=== PATIENT | male | born 1965 | race Caucasian/White ===

== ENCOUNTER 2018-07-17 18:04 | Inpatient (IN) ==
--- NOTE | 2018-07-17 18:12 | Emergency Department Note ---
ED Disposition Clinical Impression: Precordial chest pain Disposition: Still a Patient Condition on Discharge: Good Referrals: Provider,Referral, [Primary Care Provider] - - Critical Care Critical Care Time: No Attestation: On , the high probability of a clinically significant, sudden or life threa tening deterioration of the following system(s) required my full and direct attention, intervention and personal management. The time I documented below is in addition to time spent performing reported procedures but includes the following listed in this critical care notation. Medical Decision Making - Fredis Inquiry Pt receiving controlled substance: No Vital Signs: 07/17/18 18:04 07/17/18 18:34 Temperature 97.7 F Temperature Source Oral Pulse Rate [Right Brachial] 85 77 Respiratory Rate 18 14 Blood Pressure [Right Arm] 165/107 H 145/79 H Blood Pressure Mean [Right Arm] 126 101 Blood Pressure Source [Right Arm] Automatic Cuff Automatic Cuff Blood Pressure Position [Right Arm] Sitting Sitting 02 Sat by Pulse Oximetry 97 95 Oxygen Delivery Method Room Air Room Air - Lab Data Lab Results 07/17/18 18:05: WBC 13.1 H, RBC 4.85, Hgb 14.7, Hct 44.1, MCV 90.9, MCH 30.4, MCHC 33.4, RDW 13.8, Plt Count 293, MPV 8.2, Neut % (Auto) 62.0, Lymph % (Auto) 30.9, [place] % (Auto) 5.2, Eos % (Auto) 1.5, Baso % (Auto) 0.3, Neut # (Auto) 8.1 H, Lymph # (Auto) 4.1, [place] # (Auto) 0.7, Eos # (Auto) 0.2, Baso # (Auto) 0.0 07/17/18 18:05: Sodium 139, Potassium 3.7, Chloride 102, Carbon Dioxide 28, Anion Gap 12.7, BUN 18, Creatinine 1.10, Estimated Creat Clear 75, Estimated GFR 69, Est GFR ( Amer) 84, Glucose 105, Calcium 8.9, Troponin I 0.03 Result diagrams: 07/17/18 18:05 07/17/18 18:05 Orders (Tests/Meds): ED MEDICATIONS Generic Name Dose Route Start Last Admin Trade Name Freq PRN Reason Stop Dose Admin Atorvastatin Calcium 40 mg 07/17/18 21:00 Lipitor 40mg Tablet PO 08/16/18 20:59 HS MARY Enoxaparin Sodium 70 mg 07/17/18 21:00 Lovenox 80mg/0.8ml Syringe SQ 08/16/18 20:59 BID MARY Metoprolol Tartrate 50 mg 07/17/18 21:00 Lopressor 50mg Tablet PO 08/16/18 20:59 BID MARY Discontinued Medications Generic Name Dose Route Start Last Admin Trade Name Caleq PRN Reason Stop Dose Admin Aspirin 324 mg 07/17/18 18:06 07/17/18 18:09 Aspirin 81mg Chewable Tablet PO 07/17/18 18:07 324 mg ONCE ONE Administration Clopidogrel Bisulfate 300 mg 07/17/18 19:08 Plavix 300mg Tablet PO 07/17/18 19:09 ONCE ONE ORDERS Category Date Time Status XR chest portable Stat Exams 07/17/18 18:06 Taken ECG Request by /Shannen Stat Y 07/17/18 18:06 Ordered - Radiology Data #1 Image(s): Chest Image Reviewed: Yes I reviewed the patient's radiology image COPD, bleb formation most prominent in right upper lobe - ECG Data Tracing #1 EKG interpreted by Robby Hernandez MD: Rhythm: sinus Rate: 85 [place]: normal Ectopy: none Conduction: normal ST Segment Changes: none T Wave Changes: none Q Waves: none No evidence of acute ischemia or injury - Physician Consults Physician Consulted: Tiffany Time: 18:39 Reason -: Cardiology Eval/Care Comment/Response: Recommends admission for cardiac cath in the morning. Start on beta-blockers, statin, Plavix, in addition to aspirin given. General Adult HPI - General Chief complaint: Chest Pain Stated complaint: chest pain Time Seen by Provider: 07/17/18 18:04 - History of Present Illness HPI narrative: Chief complaint of chest pain. For 2 weeks the patient has noticed when he is doing physical activity such as drywalling that he is more short of breath and sweatier than he has ever been in the past. Today he had 3 episodes of chest discomfort in the center of the substernal area that occurred while laying down and seem to improve with standing. Episodes lasted about 5 minutes and were associated with shortness of breath, nausea, diaphoresis, narrowing of faintness. Pain radiated down the inner aspect of both upper arms. He does not have any known heart disease. A smoker. He does not have hyperlipidemia, h ypertension, diabetes. No previous cardiac workup. Family history positive for stroke in his father and heart attack in grandparents. - Related Data Allergies Allergy/AdvReac Type Severity Reaction Status Date / Time NO KNOWN ALLERGIES Allergy Uncoded 09/04/17 14:23 [facility] History I have reviewed the patient's past medical history: Yes ROS Obtained: Yes All systems reviewed & no additional complaints - Constitutional Constitutional: Denies fever(s) - Cardiovascular Cardiovascular: Reports chest pain, Reports diaphoresis - Respiratory Respiratory: Yes dyspnea Physical Exam - General General appearance: alert, in no apparent distress - Head Head exam: atraumatic, normocephalic - Eye Eye exam: Present: normal appearance - ENT ENT exam: Present: mucous membranes moist - Neck Neck exam: Present: normal inspection, full ROM, trachea midline - Chest Chest inspection: Present: normal inspection, symmetric chest wall rise - Respiratory Respiratory exam: Present: normal lung sounds bilaterally. Absent: respiratory distress - Cardiovascular Cardiovascular exam: Present: regular rate, normal rhythm, normal heart sounds - Abdominal Exam Abdominal exam: Present: soft. Absent: distention, tenderness - Extremities Exam Extremities exam: Present: normal inspection, full ROM, other (Symmetric normal pulses of the extremities) - Neurological Exam Neurological exam: Present: alert, oriented X3, CN II-XII intact. Absent: motor sensory deficit - Psychiatric Psychiatric exam: Present: anxious - Skin Skin exam: Present: warm, dry
[2018-07-17 18:20] LABS: Basophils % 0.3 % (0.1-2.0); Eosinophils # 0.2 K/mm3 (0.0-0.4); Eosinophils % 1.5 % (0.1-12.0); Hematocrit 44.1 % (42.0-52.0); Hemoglobin 14.7 g/dL (14.1-18.0); Lymphocytes # 4.1 K/mm3 (0.7-4.5); Lymphocytes % 30.9 K/mm3 (10-50); Mean Corpuscular HGB Conc 33.4 g/dL (31.8-35.4); Mean Corpuscular Hemoglobin 30.4 pg (27.0-31.2); Mean Corpuscular Volume 90.9 fl (80-94); Mean Platelet Volume 8.2 fl (7.4-10.4); Monocytes # 0.7 K/mm3 (0.1-1.0); Monocytes % 5.2 % (1.7-9.3); Neutrophils # 8.1 K/mm3 (1.8-7.8); Platelet Count 293 K/mm3 (142-424); Red Blood Count 4.85 M/mm3 (4.60-6.20); Red Cell Distribution Width 13.8 % (11.5-17.5); White Blood Count 13.1 K/mm3 (4.8-10.8)
[2018-07-17 18:33] LABS: Anion Gap 12.7 mEq/L (5-15); Calcium 8.9 mg/dL (8.5-10.1); Potassium 3.7 mmoL/L (3.5-5.1)
--- NOTE | 2018-07-17 20:37 | History & Physical Report ---
*Admission Date: 07/17/18 *Chief complaint: chest pain *History of present illness: this wm with several episodes of ant chest pain and was seen in the ed - [facility] complaint of chest pain. For 2 weeks the patient has noticed when he is doing physical activity such as drywalling that he is more short of breath and sweatier than he has ever been in the past. Today he had 3 episodes of chest discomfort in the center of the substernal area that occurred while laying down and seem to improve with standing. Episodes lasted about 5 minutes and were associated with shortness of breath, nausea, diaphoresis, narrowing of faintness. Pain radiated down the inner aspect of both upper arms. He does not have any known heart disease. A smoker. He does not have hyperlipidemia, hypertension, diabetes. No previous cardiac workup. Family history positive for stroke in his father and heart attack in grandparents. [facility] History I have reviewed the patient's past medical history: Yes - *Social History Smoking Status: Current every day smoker Alcohol Intake: never - Psychiatric History Expresses thoughts of harming self/others: None Suicide Plan Description: No Plan Review of Systems - Review of Systems Review of systems:: pertinent systems reviewed and negative unless documented below - Constitutional Denies fever(s) - Eyes Denies change in vision - ENT Denies change in voice - *Cardiovascular Reports chest pain - *Respiratory Denies cough - *Gastrointestinal Reports nausea, Denies abdominal pain - *Genitourinary Denies blood in urine - *Musculoskeletal Denies joint pain - Integumentary/Breasts Denies rash - *Neurologic Denies seizure-like activity - Psychiatric Denies anxiety Meds Home Medications Medication Instructions Recorded Confirmed Type Methadone HCl [Methadose] 70 mg PO DAILY 07/17/18 07/17/18 History Allergies Allergy/AdvReac Type Severity Reaction Status Date / Time NO KNOWN ALLERGIES Allergy Uncoded 09/04/17 14:23 Exam Vital signs and Labs for Last 24 Hours: Temp Pulse Resp BP Pulse Ox 97.7 F 74 20 165/98 H 99 07/17/18 18:04 07/17/18 20:29 07/17/18 20:29 07/17/18 20:29 07/17/18 20:29 Laboratory Results - last 24 hr 07/17/18 18:05: WBC 13.1 H, RBC 4.85, Hgb 14.7, Hct 44.1, MCV 90.9, MCH 30.4, MCHC 33.4, RDW 13.8, Plt Count 293, MPV 8.2, Neut % (Auto) 62.0, Lymph % (Auto) 30.9, [place] % (Auto) 5.2, Eos % (Auto) 1.5, Baso % (Auto) 0.3, Neut # (Auto) 8.1 H, Lymph # (Auto) 4.1, [place] # (Auto) 0.7, Eos # (Auto) 0.2, Baso # (Auto) 0.0 07/17/18 18:05: Sodium 139, Potassium 3.7, Chloride 102, Carbon Dioxide 28, Anion Gap 12.7, BUN 18, Creatinine 1.10, Estimated Creat Clear 75, Estimated GFR 69, Est GFR ( Amer) 84, Glucose 105, Calcium 8.9, Troponin I 0.03 I & O for Last 24 hours: Intake & Output 07/15/18 07/16/18 07/17/18 07/18/18 11:59 11:59 11:59 11:59 Weight 155 lb - Constitutional no acute distress - *Routine HEENT Exam Head: Present: normocephalic Eye: Present: EOMI, PERRL ENT: Present: mucous membranes dry - *Routine Neck Exam Present: supple - *Routine Respiratory Exam Present: CTA bilaterally - *Routine Cardiovascular Exam Present: RRR, murmur. Absent: rubs - *Routine Abdominal Exam Present: soft - *Routine Extremities Exam Present: full ROM - *Routine Skin Exam Present: intact - *Routine Neurological Exam Present: alert, oriented X3, CN II-XII intact - Routine Psychiatric Exam Present: normal affect Assessment and Plan (1) Precordial chest pain Current visit: Yes Status: Acute Category: Medical Code(s): R07.2 - Precordial pain (2) Tobacco use Current visit: Yes Status: Acute Category: Medical Code(s): Z72.0 - Tobacco use
--- NOTE | 2018-07-18 07:25 | Consult Report ---
History of Present Illness Consult date: 07/18/18 Requesting physician: Viraj Barr Consult reason: chest pain Chief complaint: chest pain Additional Medical History:: 1. Tobacco use 2. History of steam clemens to the left hand 3. Methadone use History of present illness: 53 yo WM with several episodes of ant chest pain and was seen in the ed - chief complaint of chest pain. For 2 weeks the patient has noticed when he is doing physical activity, such as dry walling, that he is more short of breath and sweatier than he has ever been in the past. Today he had 3 episodes of chest discomfort in the center of the substernal area that occurred while laying down and seem to improve with standing. Episodes lasted about 5 minutes and were associated with shortness of breath, nausea, diaphoresis, narrowing of faintness. Pain radiated down the inner aspect of both upper arms. He does not have any known heart disease. A smoker. He does not have hyperlipidemia, hypertension, diabetes. No previous cardiac workup. Family history positive for stroke in his father and heart attack in grandparents The above per Dr. Barr and Dr. Inman EKGs in the ER showed sinus rhythm with less than [address] segment elevation in the inferior and lateral leads. Patient's initial troponin was normal but he was kept overnight for observation with subsequent troponins noted to be elevated. Patient was started on Integrilin, nitroglycerin drip along with aspirin, Plavix and a dose of Lovenox. His symptoms resolved quickly in the ER with no recurrence overnight. Telemetry shows no arrhythmias overnight. [facility] History Medical History: Denies:: Cancer, Diabetes Mellitus Type 1, Diabetes Mellitus Type 2, MRSA Other Medical History: Reports: Arthritis (hands - osteo), Sinus Problems (seasonal allergies) Laterality Cases: Bilateral: Arthroscopy Shoulder Other Surgeries: Yes: Other (T&A) Amputation: No Fractures: Yes (right & left pinky) - *Social History Educational Level: Attended College Smoking Status: Current every day smoker Tobacco Type: cigarettes # Packs/Day (cigarettes): 1 #Yrs smoked (if former smoker): 45 Alcohol Intake: never Substance Use Type: opiates, other Occupational Status: employed Housing: house Household Members: significant other - Psychiatric History Expresses thoughts of harming self/others: None Suicide Plan Description: No Plan *Family Hx:: Stroke Meds Home Medications Medication Instructions Recorded Confirmed Type Methadone HCl [Methadose] 70 mg PO DAILY 07/17/18 07/17/18 History Allergies Allergy/AdvReac Type Severity Reaction Status Date / Time NO KNOWN ALLERGIES Allergy Uncoded 09/04/17 14:23 Review of Systems - *Cardiovascular Reports chest pain, Reports shortness of breath, Reports shortness of breath with activity - *Respiratory Reports shortness of breath with activity - *Gastrointestinal Reports heartburn, Denies bright, red blood in stools, Denies loose stools, Denies black, tarry stools - *Genitourinary Denies blood in urine - *Musculoskeletal Denies joint pain - *Neurologic Denies seizure-like activity Exam Vital signs and Labs for Last 24 Hours: Temp Pulse Resp BP Pulse Ox 98.3 F 72 19 122/76 98 07/18/18 04:00 07/18/18 06:18 07/18/18 06:18 07/18/18 06:18 07/18/18 06:18 Laboratory Results - last 24 hr 07/17/18 18:05: WBC 13.1 H, RBC 4.85, Hgb 14.7, Hct 44.1, MCV 90.9, MCH 30.4, MCHC 33.4, RDW 13.8, Plt Count 293, MPV 8.2, Neut % (Auto) 62.0, Lymph % (Auto) 30.9, [place] % (Auto) 5.2, Eos % (Auto) 1.5, Baso % (Auto) 0.3, Neut # (Auto) 8.1 H, Lymph # (Auto) 4.1, [place] # (Auto) 0.7, Eos # (Auto) 0.2, Baso # (Auto) 0.0 07/17/18 18:05: Sodium 139, Potassium 3.7, Chloride 102, Carbon Dioxide 28, Anion Gap 12.7, BUN 18, Creatinine 1.10, Estimated Creat Clear 75, Estimated GFR 69, Est GFR ( Amer) 84, Glucose 105, Calcium 8.9, Troponin I 0.03 07/17/18 22:15: Troponin I 0.43 H 07/18/18 01:09: Troponin I 0.84 H I & O for Last 24 hours: Intake & Output 07/15/18 07/16/18 07/17/18 07/18/18 11:59 11:59 11:59 11:59 Intake Total 138 / 138 Output Total 950 / 950 Balance -812 / -812 Weight 163 lb 9 oz - *Routine Neck Exam Present: supple. Absent: JVD, carotid bruit - *Routine Respiratory Exam Present: CTA bilaterally. Absent: accessory muscle use, rales, rhonchi, wheezes - *Routine Cardiovascular Exam Present: RRR. Absent: murmur, gallop, rubs - *Routine Abdominal Exam Present: soft. Absent: tenderness, distended, guarding - *Routine Extremities Exam Absent: edema, calf tenderness - *Routine Neurological Exam Present: alert, oriented X3, moving all extremities Assessment and Plan (1) Myocardial infarction Current visit: Yes Status: Acute Category: Medical Code(s): I21.9 - Acute myocardial infarction, unspecified (2) Tobacco use Current visit: Yes Status: Acute Category: Medical Code(s): Z72.0 - Tobacco use - Assessment and plan all Dx Assessment and Plan for all problems:: 1. Proceed with left heart catheterization today. 2. Continue current medications including IV Integrilin and nitroglycerin drip. 3. After informed consent signed, patient will be given a dose of Ativan for his anxiety. 4. Will obtain an echocardiogram to evaluate left ventricular size and function and valve status. 5. Further recommend he should follow pending above. 6. Patient will need to be allowed to go to his methadone clinic appointment tomorrow morning.
--- NOTE | 2018-07-18 07:27 | Pharmacy Consult Notes ---
[facility] Pharmacy VTE Monitoring - Patient Demographics Admission date: 07/17/18 Report Date: 07/18/18 Time: 07:27 Allergies/Adverse Reactions: Patient Allergies NO KNOWN ALLERGIES Allergy (Uncoded 09/04/17 14:23) Height: 1.73 m Weight: 74.191 kg Patient Problems: Current Active Problems Precordial chest pain (Acute) Tobacco use (Acute) - VTE Risk Labs: VTE Related Lab Results Hgb 14.7 g/dL (14.1-18.0) 07/17/18 18:05 Hct 44.1 % (42.0-52.0) 07/17/18 18:05 Plt Count 293 K/mm3 (142-424) 07/17/18 18:05 BUN 18 mg/dL (7-18) 07/17/18 18:05 Creatinine 1.10 mg/dL (0.70-1.30) 07/17/18 18:05 Estimated Creat Clear 75 mL/min (0-300) 07/17/18 18:05 Was VTE Risk Assessment Performed: Yes VTE Score: 3 VTE Risk Level: Low Risk - Prophylaxis VTE Prophylaxis Ordered?: Yes Types of VTE Prophylaxis: TEDS Knee High, Pharmacological Location of Applied Device: Bilateral Lower Extremeties Pharmacologic Type: Enoxaparin - VTE Diagnosis Confirmed Treatment or plan recommended: Continue Current Treatment
--- NOTE | 2018-07-18 12:42 | Progress Note ---
Internal Medicine - PN: Subj *Date: 07/18/18 *Time: 08:20 Exam Vital signs and Labs for Last 24 Hours: Temp Pulse Resp BP Pulse Ox 98.3 F 50 L 17 129/66 96 07/18/18 11:45 07/18/18 12:15 07/18/18 12:15 07/18/18 12:15 07/18/18 12:15 Laboratory Results - last 24 hr 07/17/18 18:05: WBC 13.1 H, RBC 4.85, Hgb 14.7, Hct 44.1, MCV 90.9, MCH 30.4, MCHC 33.4, RDW 13.8, Plt Count 293, MPV 8.2, Neut % (Auto) 62.0, Lymph % (Auto) 30.9, [place] % (Auto) 5.2, Eos % (Auto) 1.5, Baso % (Auto) 0.3, Neut # (Auto) 8.1 H, Lymph # (Auto) 4.1, [place] # (Auto) 0.7, Eos # (Auto) 0.2, Baso # (Auto) 0.0 07/17/18 18:05: Sodium 139, Potassium 3.7, Chloride 102, Carbon Dioxide 28, Anion Gap 12.7, BUN 18, Creatinine 1.10, Estimated Creat Clear 75, Estimated GFR 69, Est GFR ( Amer) 84, Glucose 105, Calcium 8.9, Troponin I 0.03 07/17/18 22:15: Troponin I 0.43 H 07/18/18 01:09: Troponin I 0.84 H 07/18/18 09:09: Activated Clotting Time 326 H* 07/18/18 09:19: Activated Clotting Time 278 H* I & O for Last 24 hours: Intake & Output 07/16/18 07/17/18 07/18/18 07/19/18 11:59 11:59 11:59 11:59 Intake Total 138 / 138 Output Total 950 / 950 Balance -812 / -812 Weight 163 lb 9 oz - *Routine HEENT Exam Head: Present: normocephalic Eye: Present: PERRL ENT: Present: mucous membranes moist - *Routine Neck Exam Present: supple. Absent: lymphadenopathy - *Routine Respiratory Exam Present: CTA bilaterally - *Routine Cardiovascular Exam Present: RRR - *Routine Abdominal Exam Present: soft, normoactive bowel sounds. Absent: tenderness - *Routine Extremities Exam Absent: cyanosis, clubbing, edema - *Routine Skin Exam Present: warm. Absent: rash - *Routine Neurological Exam Present: alert, oriented X3 Assessment and Plan (1) Myocardial infarction Current visit: Yes Status: Acute Category: Medical Code(s): I21.9 - Acute myocardial infarction, unspecified (2) Tobacco use Current visit: Yes Status: Acute Category: Medical Code(s): Z72.0 - Tobacco use - Assessment and plan all Dx Assessment and Plan for all problems:: Rounded with Dr. Barr all orders per [place] heart cath
--- NOTE | 2018-07-18 16:19 | Cardiology Report ---
PROCEDURE: 2-D M-mode and color Doppler study INDICATIONS FOR THE TEST: Chest pain X COPD Heart Murmur Tobacco SmokingX Palpitations Fatigue Syncope Edema Hypertension Diabetes Mellitus Rheumatic Fever SOBXDOEXObesity Hyperlipidemia Family History HD Additional History POS TROP PATIENT INFORMATION HEIGHT: 68 WEIGHT:163 GENDER: Male B/P:122/76 2-D/M-MODE INTERPRETATION: 2-D MEASUREMENTS OBSERVED VALUES IN CMS Right Ventricular Dimension (RVDd) 2.6 Interventricular Septum (Thickness)(IVsd) 1.0 Left Ventricular Internal Dimensions(LVIDd) 4.2 Left Ventricular Posterior Wall (Thickness)(LVPWd) 1.0 Aortic Root 3.3 Aortic Cusp Separation 2.5 Left Atrial Dimensions (LAD) 2.7 2D 1. Left atrium is mildly enlarged, left ventricle is normal size, visually estimated ejection fraction 40%, there is marked hypokinesis involving mid to distal septum, anterior, and anteroapical wall. 2. The right atrium and right ventricle are normal size and contractility. 3. The aortic valve is minimally thickened and fibrosed. 4. The mitral and tricuspid valve leaflets are minimally thickened and 5. The pulmonic valve is poorly visualized. 6. No significant pericardial effusion noted. DOPPLER INTERROGATION: Doppler interrogation of the aortic, mitral and tricuspid valvular presence of mild mitral and tricuspid regurgitation, tricuspid regurgitation jet velocity is inadequate for calculation of the right ventricular systolic pressure, grade 1 diastolic dysfunction seen without tissue Doppler evidence of raised left atrial pressure. CONCLUSION: 1. Mildly enlarged left atrium, normal left ventricular size, visually estimated ejection fraction 40%, with segmental wall motion abnormality described above, grade 1 diastolic dysfunction seen without tissue Doppler evidence of raised left atrial pressure. 2. Mild mitral and tricuspid regurgitation 3. No significant pericardial effusion noted.
[2018-07-19 06:22] LABS: Chol/HDL Ratio 5.4 (1-3.5)
--- NOTE | 2018-07-19 07:42 | Progress Note ---
Subjective Date: 07/19/18 Time: 07:39 Principal diagnosis: NSTEMI Interval history: 53 yo WM in bed in NAD. No complaints overnight. Ready to go home. He has nicotine patches at home and will use them. Does not want to try Chantix and did not have a good experience with wellbutrin. Telemetry shows sinus rhythm with late T wave inversion related to OR. Septal, anterior and Apical hypokinesis noted on echo with reduced EF at 40%. Exam Vital signs and Labs for Last 24 Hours: Temp Pulse Resp BP Pulse Ox 98.0 F 52 L 18 116/71 96 07/19/18 06:00 07/19/18 06:00 07/19/18 06:00 07/19/18 06:00 07/19/18 06:00 Laboratory Results - last 24 hr 07/18/18 09:09: Activated Clotting Time 326 H* 07/18/18 09:19: Activated Clotting Time 278 H* 07/19/18 05:50: Triglycerides 108, Cholesterol 185, LDL Cholesterol 129, VLDL Cholesterol 22, HDL Cholesterol 34, Cholesterol/HDL Ratio 5.4 H I & O for Last 24 hours: Intake & Output 07/16/18 07/17/18 07/18/18 07/19/18 11:59 11:59 11:59 11:59 Intake Total 138 / 138 480 / 480 Output Total 950 / 950 850 / 850 Balance -812 / -812 -370 / -370 Weight 163 lb 9 oz 165 lb 8 oz - *Routine Neck Exam Present: supple. Absent: JVD, carotid bruit - *Routine Respiratory Exam Present: decreased breath sounds, CTA bilaterally. Absent: accessory muscle use, rales, rhonchi, wheezes - *Routine Cardiovascular Exam Present: RRR. Absent: murmur, gallop, rubs - *Routine Extremities Exam Absent: edema, calf tenderness - *Routine Neurological Exam Present: alert, oriented X3, moving all extremities Progress Note: A&P (1) Myocardial infarction Status: Acute Current Visit: Yes (2) Tobacco use Status: Acute Current Visit: Yes Assessment and Plan for All Diagnoses:: OK for discharge home. Activity: Nothing strenuous. Follow up in one week. Meds: ASA 81 mg daily Plavix 75 mg daily Atorvastatin 40 mg daily Metoprolol 25 mg BID Lisinopril 5 mg daily
--- NOTE | 2018-07-19 08:32 | Discharge Summary ---
General - General Admission date:: 07/17/18 Discharge date: 07/19/18 HPI HPI: this wm with several episodes of ant chest pain and was seen in the ed - hief complaint of chest pain. For 2 weeks the patient has noticed when he is doing physical activity such as drywalling that he is more short of breath and sweatier than he has ever been in the past. Today he had 3 episodes of chest discomfort in the center of the substernal area that occurred while laying down and seem to improve with standing. Episodes lasted about 5 minutes and were associated with shortness of breath, nausea, diaphoresis, narrowing of faintness. Pain radiated down the inner aspect of both upper arms. He does not have any known heart disease. A smoker. He does not have hyperlipidemia, hypertension, diabetes. No previous cardiac workup. Family history positive for stroke in his father and heart attack in grandparents. Hospital Course Hospital Course: pt with improvement in chest pain after admit with meds and was seen by card -3 yo WM with several episodes of ant chest pain and was seen in the ed - chief complaint of chest pain. For 2 weeks the patient has noticed when he is doing physical activity, such as dry walling, that he is more short of breath and sweatier than he has ever been in the past. Today he had 3 episodes of chest discomfort in the center of the substernal area that occurred while laying down and seem to improve with standing. Episodes lasted about 5 minutes and were associated with shortness of breath, nausea, diaphoresis, narrowing of faintness. Pain radiated down the inner aspect of both upper arms. He does not have any known heart disease. A smoker. He does not have hyperlipidemia, hypertension, diabetes. No previous cardiac workup. Family history positive for stroke in his father and heart attack in grandparents The above per Dr. Barr and Dr. Inman EKGs in the ER showed sinus rhythm with less than [address] segment elevation in the inferior and lateral leads. Patient's initial troponin was normal but he was kept overnight for observation with subsequent troponins noted to be elevated. Patient was started on Integrilin, nitroglycerin drip along with aspirin, Plavix and a dose of Lovenox. His symptoms resolved quickly in the ER with no recurrence overnight. Telemetry shows no arrhythmias overnight. Proceed with left heart catheterization today. 2. Continue current medications including IV Integrilin and nitroglycerin drip. 3. After informed consent signed, patient will be given a dose of Ativan for his anxiety. 4. Will obtain an echocardiogram to evaluate left ventricular size and function and valve status. 5. Further recommend he should follow pending above. 6. Patient will need to be allowed to go to his methadone clinic appointment tomorrow morning. pt had card cath - GIOGRAPHIC RESULTS: 1. The left main artery 2. The left anterior descending artery has proximal 10% stenoses with a ruptured plaque and a thrombus in the midportion of the LAD. The stenotic area at the ruptured plaque was approximately 50% stenosis. 3. The ramus intermedius has a proximal eccentric 80% stenosis 4. The circumflex artery is a codominant vessel large and normal 5. The right coronary artery is a codominant vessel and has mid vessel 30% stenosis 6. The BRIDGES ventriculogram reveals normal ejection fraction estimated at 65% 7. The left ventricular end-diastolic pressure is 10 mmHg IMPRESSION: 1. Severe 2 vessel coronary artery disease as described above 2. Active thrombus in the mid LAD which represents the infarct vessel 3. Successful stenting the mid LAD stenosis reduced to 0% with 2 drug-eluting stents 4. Severe stenosis in the proximal ramus intermedius with successful stenting reducing the stenosis to 0% 5. Normal ejection fraction 6. Normal left ventricular end-diastolic pressure PLAN: 1. Plavix 75 mg a day and aspirin 81 mg a day for at least one year 2. LDL less than 55 3. Low dose carvedilol and lisinopril if blood pressure and heart rate will support 4. Avoidance of tobacco products 5. Risk factor modification 6. Cardiac rehabilitation doing better today and will be d/c for follow up with kitty Wolfe for discharge home. Activity: Nothing strenuous. Follow up in one week. Meds: ASA 81 mg daily Plavix 75 mg daily Atorvastatin 40 mg daily Metoprolol 25 mg BID Lisinopril 5 mg daily Objective Vital signs: Temp Pulse Resp BP Pulse Ox 98.5 F 52 L 18 116/71 96 07/19/18 08:00 07/19/18 06:00 07/19/18 06:00 07/19/18 06:00 07/19/18 06:00 no acute distress, average body habitus - *Routine HEENT Exam Head: Present: normocephalic Eye: Present: EOMI, PERRL ENT: Present: mucous membranes dry - *Routine Neck Exam Present: supple. Absent: JVD - *Routine Respiratory Exam Present: CTA bilaterally - *Routine Cardiovascular Exam Present: RRR, murmur - *Routine Abdominal Exam Present: soft - *Routine Extremities Exam Absent: calf tenderness - *Routine Skin Exam Present: intact - *Routine Neurological Exam Present: alert, oriented X3, CN II-XII intact - Routine Psychiatric Exam Present: normal affect Results Labs on day of discharge: Labs from last 24 hours 07/19/18 07/18/18 07/18/18 05:50 09:19 09:09 Activated Clotting Time 278 H* 326 H* Triglycerides 108 Cholesterol 185 LDL Cholesterol 129 VLDL Cholesterol 22 HDL Cholesterol 34 Cholesterol/HDL Ratio 5.4 H DS: Diagnosis - Discharge Diagnosis (1) Myocardial infarction Status: Acute (2) Tobacco use Status: Acute Discharge Plan - Patient Discharge Instructions ACTIVITY: Continue current activity DIET: continue same diet Patient Instructions: DI for Heart Attack, Heart-Healthy Diet, DI for Cardiac Catheterization, DI for Surgical Site Infection - Follow up Plan Disposition: Home, Self-[facility] Medications: Home Medications Medication Instructions Recorded Confirmed Type Methadone HCl [Methadose] 70 mg PO DAILY 07/17/18 07/17/18 History Prescriptions/Medication Reconciliation: New Atorvastatin Calcium [Lipitor 40mg Tablet] 40 mg PO HS #30 tablet Clopidogrel Bisulfate [Plavix 75mg Tab] 75 mg PO DAILY #30 tablet Metoprolol Tartrate [Lopressor 25mg tablet] 25 mg PO BID #60 tablet Methadone HCl [Methadone 10mg Tablet] 70 mg PO DAILYP PRN tablet PRN Reason: pain Aspirin [Aspirin 81mg EC Tab] 81 mg PO DAILY #30 tablet. Lisinopril [Zestril 5mg Tablet] 5 mg PO DAILY #30 tablet Continue Methadone HCl [Methadose] 70 mg PO DAILY
== END 2018-07-19 09:24 | disposition home or self-care (01) ==
LOC: 2ND 18:04 → ER 18:04 → 2ND 20:29
PROVIDERS: ADMIT Emergency Medicine; ATTEND Emergency Medicine

== ENCOUNTER 2018-08-01 13:22 | Outpatient (RCR) | payer BC, SELFPAY | END 2018-08-30 15:07 | disposition home or self-care (01) | LOC: PT 13:22 | PROVIDERS: Visit Provider Internal Medicine | DX: Z95.5 Presence of coronary angioplasty implant and graft (principal) ==

== ENCOUNTER → 2018-08-07 12:14 | Outpatient (CLI) | payer BC, SELFPAY | PROVIDERS: PCP Emergency Medicine; Visit Provider Internal Medicine | DX: I25.10 Atherosclerotic heart disease of native coronary artery without angina pectoris (principal); E78.2 Mixed hyperlipidemia; Z72.0 Tobacco use | CPT/HCPCS: 93005; 93017 ==

== ENCOUNTER 2018-08-10 06:18 | Observation (INO) ==
[2018-08-10 06:39] LABS: Basophils % 0.5 % (0.1-2.0); Eosinophils # 0.1 K/mm3 (0.0-0.4); Eosinophils % 1.6 % (0.1-12.0); Hemoglobin 14.8 g/dL (14.1-18.0); Lymphocytes # 2.1 K/mm3 (0.7-4.5); Lymphocytes % 24.7 % (10-50); Mean Corpuscular HGB Conc 31.4 g/dL (31.8-35.4); Mean Corpuscular Hemoglobin 28.9 pg (27.0-31.2); Mean Platelet Volume 8.4 fl (7.4-10.4); Monocytes # 0.5 K/mm3 (0.1-1.0); Monocytes % 6.3 % (1.7-9.3); Neutrophils # 5.7 K/mm3 (1.8-7.8); Neutrophils % 66.9 % (37.0-80.0); Platelet Count 307 K/mm3 (142-424); Red Blood Count 5.11 M/mm3 (4.60-6.20); Red Cell Distribution Width 13.8 % (11.5-17.5); White Blood Count 8.6 K/mm3 (4.8-10.8)
[2018-08-10 06:52] LABS: Anion Gap 11.6 mEq/L (5-15); Blood Urea Nitrogen 9 mg/dL (7-18); Calcium 8.8 mg/dL (8.5-10.1); Carbon Dioxide 28 mmol/L (21.0-32.0); Chloride 101 mmol/L (98-107); Glucose 131 mg/dL (74-106); Potassium 3.6 mmoL/L (3.5-5.1); Sodium 137 mmol/L (136-145)
--- NOTE | 2018-08-10 07:38 | Emergency Department Note ---
ED Disposition Clinical Impression: Angina at rest, History of coronary artery stent placement CAD (coronary artery disease) Qualifiers: Coronary Disease-Associated Artery/Lesion type: unspecified vessel or lesion type [place] vs. transplanted heart: [place] heart Associated angina: angina presence unspecified Qualified Code(s): I25.10 - Atherosclerotic heart disease of [place] coronary artery without angina pectoris Disposition: Home, Self-Care Condition on Discharge: Good Instructions: DI for Angina Additional Instructions: see sunday and continue meds Referrals: Viraj Barr MD [Primary Care Provider] - - Critical Care Critical Care Time: No Attestation: On 08/10/18, the high probability of a clinically significant, sudden or life threatening deterioration of the following system(s) required my full and direct attention, intervention and personal management. The time I documented below is in addition to time spent performing reported procedures but includes the following listed in this critical care notation. Medical Decision Making - Medical Records Medical records reviewed: Yes: I reviewed the patient's medical records. - Fredis Inquiry Pt receiving controlled substance: No Vital Signs: 08/10/18 06:19 08/10/18 06:49 Temperature 98 F Temperature Source Oral Pulse Rate [Right Radial] 81 82 Respiratory Rate 17 18 Blood Pressure [Right Arm] 149/95 H 113/68 Blood Pressure Mean [Right Arm] 113 83 Blood Pressure Source [Right Arm] Automatic Cuff Blood Pressure Position [Right Arm] Supine 02 Sat by Pulse Oximetry 98 98 Oxygen Delivery Method Room Air - Lab Data Lab results reviewed: Yes: I reviewed the patient's lab results. Lab Results 08/10/18 06:25: WBC 8.6, RBC 5.11, Hgb 14.8, Hct 47.0, MCV 92.0, MCH 28.9, MCHC 31.4 L, RDW 13.8, Plt Count 307, MPV 8.4, Neut % (Auto) 66.9, Lymph % (Auto) 24.7, [place] % (Auto) 6.3, Eos % (Auto) 1.6, Baso % (Auto) 0.5, Neut # (Auto) 5.7, Lymph # (Auto) 2.1, [place] # (Auto) 0.5, Eos # (Auto) 0.1, Baso # (Auto) 0.0 08/10/18 06:25: Sodium 137, Potassium 3.6, Chloride 101, Carbon Dioxide 28, Anion Gap 11.6, BUN 9, Creatinine 1.15, Estimated Creat Clear 73, Estimated GFR 66, Est GFR ( Amer) 80, Glucose 131 H, Calcium 8.8, Troponin I < 0.02 Result diagrams: 08/10/18 06:25 08/10/18 06:25 Orders (Tests/Meds): ED MEDICATIONS Discontinued Medications Generic Name Dose Route Start Last Admin Trade Name Freq PRN Reason Stop Dose Admin Aspirin 162 mg 08/10/18 06:25 08/10/18 06:28 Aspirin 81mg Chewable Tablet PO 08/10/18 06:26 162 mg ONCE ONE Administration - Radiology Data #1 Image(s): Chest Image Reviewed: Yes I reviewed the patient's radiology image Preliminary Findings: Normal/NAD - ECG Data Tracing #1 Normal Sinus Rhythm: Yes Ischemic changes: non-specific ST-T wave changes ECG compared to prior tracings: there are no significant changes Chest Pain HPI - General Chief Complaint: Chest Pain Stated Complaint: chest pain Time Seen by Provider: 08/10/18 06:30 Mode of Arrival: Family Vehicle Source of Information: Patient, Significant Other, Medical Record Limitations: No Limitations Description of Symptoms (Recalled from ER Triage Doc. by RN): pt states that approx 3 hours ago he began having chest pain while sitting on the couch. pt states his pain is in the middle of his chest and it comes and goes. pt denies pain at this time. pt states he had 3 stents placed nov by ekaterina. - History of Present Illness HPI narrative: about 3 minute episode of chest pain - now resolved with recent cath and has stents but since abn gxt - no pain at this time MD complaint: chest pain indicative of cardiac Onset (ago): hour(s) Duration: now resolved Activity at onset: during rest Pain location: substernal Severity: moderate Risk Factors for CAD: Family Hx of CAD, Smoking Treatments prior to or on arrival for Cardiac Chest Pain: aspirin, beta blockers - VIN Score Non-Stemi Age of patient: Less than 65 yrs Number of risk factors for CAD: Presence of 3 or more Prior coronary artery stenosis(seen in coronary angiography): Less than 50% ST-Segment deviation on ECG (more than 1 min): Absent Prior aspirin intake: ASA intake in the last 7 days Severe anginal chest pain: No or one episode in last 24 hours Elevated cardiac markers(CK-MB or troponin): Absent Non-Stemi Risk Score: 2 - Related Data Prior Cardiac Testing/Procedures: Stenting Home Medications Medication Instructions Recorded Confirmed Methadone HCl [Methadose] 70 mg PO DAILY 07/17/18 08/10/18 Aspirin [Aspirin 81mg EC Tab] 81 mg PO DAILY 07/28/18 08/10/18 Atorvastatin Calcium [Lipitor 40mg 40 mg PO HS 07/28/18 08/10/18 Tablet] Clopidogrel Bisulfate [Plavix 75mg 75 mg PO DAILY 07/28/18 08/10/18 Tab] Lisinopril [Zestril 5mg 5 mg PO BID 07/28/18 08/10/18 Tablet] Metoprolol Tartrate [Lopressor 12.5 mg PO BID 07/28/18 08/10/18 25mg tablet] Isosorbide Mononitrate [Imdur 30mg 30 mg PO DAILY 08/07/18 08/10/18 ER tablet] Ranolazine [Ranexa] 1,000 mg PO BID 08/07/18 08/10/18 Pantoprazole Sodium [Protonix 40mg 40 mg PO DAILY 08/10/18 08/10/18 tablet] Allergies Allergy/AdvReac Type Severity Reaction Status Date / Time No Known Allergies Allergy Verified 08/10/18 06:24 [facility] History I have reviewed the patient's past medical history: Yes Medical History: Reports:: Atherosclerotic Heart Disease, Cardiomyopathy Denies:: Cancer, Diabetes Mellitus Type 1, Diabetes Mellitus Type 2, MRSA Other Medical History: Reports: Arthritis, Sinus Problems Laterality Cases: Bilateral: Arthroscopy Shoulder, Tonsillectomy Other Surgeries: Yes: Cardiac Catheterization, Coronary Stent, Other Amputation: No Fractures: Yes (right & left pinky) - Social History Smoking Status: Current every day smoker Tobacco Type: cigarettes # Packs/Day (cigarettes): 1 #Yrs smoked (if former smoker): 45 Alcohol Intake: never Substance Use Type: opiates, other Occupational Status: employed Housing: house Household Members: significant other - Psychiatric History Expresses thoughts of harming self/others: None Suicide Plan Description: No Plan Family Hx:: Stroke ROS Obtained: Yes All systems reviewed & no additional complaints - Constitutional Constitutional: Denies fever(s) - Eyes Eyes: Denies change in vision - ENT Ears, Nose, Mouth, and Throat: Denies sore throat - Cardiovascular Cardiovascular: Reports chest pain - Respiratory Respiratory: No cough - Gastrointestinal Gastrointestingal: Denies: abdominal pain - Genitourinary Male Genitourinary: Denies hematuria - Musculoskeletal Musculoskeletal: Denies joint pain - Integumentary/Breasts Skin/Breast: Denies rash - Neurologic Neurologic: Denies seizure-like activity Physical Exam - General General appearance: alert - Head Head exam: normocephalic - Eye Eye exam: Present: PERRL, EOMI - ENT ENT exam: Present: mucous membranes moist - Neck Neck exam: Present: trachea midline - Respiratory Respiratory exam: Present: normal lung sounds bilaterally. Absent: respiratory distress - Cardiovascular Cardiovascular exam: Present: regular rate, systolic murmur, +S4 - Abdominal Exam Abdominal exam: Present: soft - Extremities Exam Extremities exam: Present: full ROM - Neurological Exam Neurological exam: Present: alert, oriented X3, CN II-XII intact - Psychiatric Psychiatric exam: Present: normal affect - Skin Skin exam: Absent: rash
--- NOTE | 2018-08-10 08:29 | History & Physical Report ---
*Admission Date: 08/10/18 *Chief complaint: chest pain *History of present illness: this wm with chest pain with several episodes about 5 this am with each lasting about 3 minutes- has no pain at this time - he had stents placed 07/18/18 and had abn myoview on 08/07/18 - he was in the ed 2 days ago - he reports more episodes of chest pain - has been compliant with meds and does use some tob and discussed with card and admitted [facility] History I have reviewed the patient's past medical history: Yes Medical History: Reports:: Atherosclerotic Heart Disease, Cardiomyopathy Denies:: Cancer, Diabetes Mellitus Type 1, Diabetes Mellitus Type 2, MRSA Other Medical History: Reports: Arthritis, Sinus Problems Laterality Cases: Bilateral: Arthroscopy Shoulder, Tonsillectomy Other Surgeries: Yes: Cardiac Catheterization, Coronary Stent, Other Amputation: No Fractures: Yes (right & left pinky) - *Social History Smoking Status: Current every day smoker Tobacco Type: cigarettes # Packs/Day (cigarettes): 1 #Yrs smoked (if former smoker): 45 Alcohol Intake: never Substance Use Type: opiates, other Occupational Status: employed Housing: house Household Members: significant other - Psychiatric History Expresses thoughts of harming self/others: None Suicide Plan Description: No Plan *Family Hx:: Stroke Review of Systems - Review of Systems Review of systems:: pertinent systems reviewed and negative unless documented below - Constitutional Denies fever(s) - Eyes Denies change in vision - ENT Denies sore throat - *Cardiovascular Reports chest pain at rest - *Respiratory Denies cough - *Gastrointestinal Denies abdominal pain - *Genitourinary Denies blood in urine - *Musculoskeletal Denies joint pain - Integumentary/Breasts Denies rash - *Neurologic Denies behavioral changes, Denies seizure-like activity - Psychiatric Denies anxiety Meds Home Medications Medication Instructions Recorded Confirmed Type Methadone HCl [Methadose] 70 mg PO DAILY 07/17/18 08/10/18 History Aspirin [Aspirin 81mg EC Tab] 81 mg PO DAILY 07/28/18 08/10/18 History Atorvastatin Calcium [Lipitor 40mg 40 mg PO HS 07/28/18 08/10/18 History Tablet] Clopidogrel Bisulfate [Plavix 75mg 75 mg PO DAILY 07/28/18 08/10/18 History Tab] Lisinopril [Zestril 5mg 5 mg PO BID 07/28/18 08/10/18 History Tablet] Metoprolol Tartrate [Lopressor 12.5 mg PO BID 07/28/18 08/10/18 History 25mg tablet] Isosorbide Mononitrate [Imdur 30mg 30 mg PO DAILY 08/07/18 08/10/18 History ER tablet] Ranolazine [Ranexa] 1,000 mg PO BID 08/07/18 08/10/18 History Pantoprazole Sodium [Protonix 40mg 40 mg PO DAILY 08/10/18 08/10/18 History tablet] Allergies Allergy/AdvReac Type Severity Reaction Status Date / Time No Known Allergies Allergy Verified 08/10/18 06:24 Exam Vital signs and Labs for Last 24 Hours: Temp Pulse Resp BP Pulse Ox 98 F 69 16 125/85 96 08/10/18 08:08 08/10/18 08:08 08/10/18 08:08 08/10/18 08:08 08/10/18 07:54 Laboratory Results - last 24 hr 08/10/18 06:25: WBC 8.6, RBC 5.11, Hgb 14.8, Hct 47.0, MCV 92.0, MCH 28.9, MCHC 31.4 L, RDW 13.8, Plt Count 307, MPV 8.4, Neut % (Auto) 66.9, Lymph % (Auto) 24.7, [place] % (Auto) 6.3, Eos % (Auto) 1.6, Baso % (Auto) 0.5, Neut # (Auto) 5.7, Lymph # (Auto) 2.1, [place] # (Auto) 0.5, Eos # (Auto) 0.1, Baso # (Auto) 0.0 08/10/18 06:25: Sodium 137, Potassium 3.6, Chloride 101, Carbon Dioxide 28, Anion Gap 11.6, BUN 9, Creatinine 1.15, Estimated Creat Clear 73, Estimated GFR 66, Est GFR ( Amer) 80, Glucose 131 H, Calcium 8.8, Troponin I < 0.02 I & O for Last 24 hours: Intake & Output 08/07/18 08/08/18 08/09/18 08/10/18 11:59 11:59 11:59 11:59 Weight 363 lb 12.203 oz - Constitutional no acute distress - *Routine HEENT Exam Head: Present: normocephalic Eye: Present: EOMI, PERRL ENT: Present: mucous membranes dry - *Routine Neck Exam Present: supple - *Routine Respiratory Exam Present: CTA bilaterally - *Routine Cardiovascular Exam Present: RRR, murmur - *Routine Abdominal Exam Present: soft - *Routine Extremities Exam Present: full ROM - *Routine Skin Exam Present: intact - *Routine Neurological Exam Present: alert, oriented X3, CN II-XII intact - Routine Psychiatric Exam Present: normal affect Assessment and Plan (1) Angina at rest Current visit: Yes Status: Acute Category: Medical Code(s): I20.8 - Other forms of angina pectoris (2) Tobacco user Current visit: No Status: Chronic Category: Medical Code(s): Z72.0 - Tobacco use (3) CAD (coronary artery disease) Current visit: Yes Status: Chronic Qualifiers: Coronary Disease-Associated Artery/Lesion type: unspecified vessel or lesion type [place] vs. transplanted heart: [place] heart Associated angina: angina presence unspecified Qualified Code(s): I25.10 - Atherosclerotic heart disease of [place] coronary artery without angina pectoris Category: Medical Code(s): I25.10 - Atherosclerotic heart disease of [place] coronary artery without angina pectoris
--- NOTE | 2018-08-10 11:57 | Pharmacy Consult Notes ---
[facility] Pharmacy VTE Monitoring - Patient Demographics Admission date: 08/10/18 Report Date: 08/10/18 Time: 11:57 Allergies/Adverse Reactions: Patient Allergies No Known Allergies Allergy (Verified 08/10/18 06:24) Height: 1.75 m Weight: 73.482 kg Patient Problems: Current Active Problems History of coronary artery stent placement (Acute) Angina at rest (Acute) Angina at rest (Acute) CAD (coronary artery disease) (Chronic) - VTE Risk Labs: VTE Related Lab Results Hgb 14.8 g/dL (14.1-18.0) 08/10/18 06:25 Hct 47.0 % (42.0-52.0) 08/10/18 06:25 Plt Count 307 K/mm3 (142-424) 08/10/18 06:25 BUN 9 mg/dL (7-18) 08/10/18 06:25 Creatinine 1.15 mg/dL (0.70-1.30) 08/10/18 06:25 Estimated Creat Clear 73 mL/min (50-200) 08/10/18 06:25 VTE Score: 3 VTE Risk Level: Low Risk - Prophylaxis VTE Prophylaxis Ordered?: Yes Types of VTE Prophylaxis: TEDS Knee High Location of Applied Device: Bilateral Lower Extremeties
[2018-08-11 06:35] LABS: Basophils % 0.4 % (0.1-2.0); Eosinophils # 0.2 K/mm3 (0.0-0.4); Eosinophils % 2.5 % (0.1-12.0); Hematocrit 45.1 % (42.0-52.0); Hemoglobin 14.6 g/dL (14.1-18.0); Lymphocytes # 1.9 K/mm3 (0.7-4.5); Lymphocytes % 29.7 % (10-50); Mean Corpuscular HGB Conc 32.4 g/dL (31.8-35.4); Mean Corpuscular Volume 92.5 fl (80-94); Mean Platelet Volume 8.4 fl (7.4-10.4); Monocytes # 0.4 K/mm3 (0.1-1.0); Neutrophils # 3.9 K/mm3 (1.8-7.8); Neutrophils % 61.2 % (37.0-80.0); Platelet Count 253 K/mm3 (142-424); Red Blood Count 4.87 M/mm3 (4.60-6.20); Red Cell Distribution Width 13.9 % (11.5-17.5); White Blood Count 6.3 K/mm3 (4.8-10.8)
[2018-08-11 06:47] LABS: Anion Gap 13.3 mEq/L (5-15); Calcium 8.8 mg/dL (8.5-10.1); Potassium 4.3 mmoL/L (3.5-5.1)
[2018-08-11 07:41] LABS: Creatine Kinase 42 U/L (39-308)
--- NOTE | 2018-08-11 09:53 | Progress Note ---
Internal Medicine - PN: Subj *Date: 08/11/18 *Time: 09:51 Interval history: episode of chest pain this am after going to bathroom - ok now with ekg and troponin ok Exam Vital signs and Labs for Last 24 Hours: Temp Pulse Resp BP Pulse Ox 97.8 F 63 18 122/76 99 08/11/18 07:31 08/11/18 07:31 08/11/18 07:31 08/11/18 07:31 08/11/18 08:20 Laboratory Results - last 24 hr 08/10/18 11:10: Troponin I < 0.02 08/10/18 13:50: Troponin I < 0.02 08/11/18 06:15: WBC 6.3 D, RBC 4.87, Hgb 14.6, Hct 45.1, MCV 92.5, MCH 30.0, MCHC 32.4, RDW 13.9, Plt Count 253, MPV 8.4, Neut % (Auto) 61.2, Lymph % (Auto) 29.7, [place] % (Auto) 6.0, Eos % (Auto) 2.5, Baso % (Auto) 0.4, Neut # (Auto) 3.9, Lymph # (Auto) 1.9, [place] # (Auto) 0.4, Eos # (Auto) 0.2, Baso # (Auto) 0.0 08/11/18 06:15: Sodium 142, Potassium 4.3, Chloride 106, Carbon Dioxide 27, Anion Gap 13.3, BUN 10, Creatinine 1.04, Estimated Creat Clear 85, Estimated GFR 74, Est GFR ( Amer) 90, Glucose 115 H, Calcium 8.8 08/11/18 06:15: Total Creatine Kinase 42, CK-MB (CK-2) 1.0, CK-MB (CK-2) Rel Index 2.4, Troponin I < 0.02 I & O for Last 24 hours: Intake & Output 08/08/18 08/09/18 08/10/18 08/11/18 11:59 11:59 11:59 11:59 Intake Total 1824 / 1824 Balance 1824 / 1824 Weight 162 lb 165 lb - Constitutional no acute distress - *Routine HEENT Exam Head: Present: normocephalic Eye: Present: EOMI, PERRL ENT: Present: mucous membranes dry - *Routine Neck Exam Present: supple - *Routine Respiratory Exam Present: CTA bilaterally - *Routine Cardiovascular Exam Present: RRR, murmur - *Routine Abdominal Exam Present: soft - *Routine Extremities Exam Present: full ROM - *Routine Skin Exam Present: intact - *Routine Neurological Exam Present: alert, oriented X3, CN II-XII intact - Routine Psychiatric Exam Present: normal affect Assessment and Plan (1) Angina at rest Current visit: Yes Status: Acute Category: Medical Code(s): I20.8 - Other forms of angina pectoris (2) Tobacco user Current visit: No Status: Chronic Category: Medical Code(s): Z72.0 - Tobacco use (3) CAD (coronary artery disease) Current visit: Yes Status: Chronic Qualifiers: Coronary Disease-Associated Artery/Lesion type: unspecified vessel or lesion type [place] vs. transplanted heart: [place] heart Associated angina: angina presence unspecified Qualified Code(s): I25.10 - Atherosclerotic heart disease of [place] coronary artery without angina pectoris Category: Medical Code(s): I25.10 - Atherosclerotic heart disease of [place] coronary artery without angina pectoris
--- NOTE | 2018-08-12 08:05 | Consult Report ---
Addendum entered and electronically signed by SAMANTHA Carroll 08/12/18 15:14: Cardiac cath showed widely patent stents with normal LVEF. OK to discharge home on home meds with exception of discontinuing ranexa and imdur. Patient should follow up in 1-2 wks. Original Note: History of Present Illness Consult date: 08/12/18 Requesting physician: Viraj Barr Consult reason: chest pain Chief complaint: Chest pain, abnormal stress test Additional Medical History:: 1. Tobacco use 2. 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 Chronic methadone use 4. CAD A. STEMI, 07/18/2018 B. cardiac cath, 07/18/2018, ANGIOGRAPHIC RESULTS: 1. The left main artery 2. The left anterior descending artery has proximal 10% stenoses with a ruptured plaque and a thrombus in the midportion of the LAD. The stenotic area at the ruptured plaque was approximately 50% stenosis. 3. The ramus intermedius has a proximal eccentric 80% stenosis 4. The circumflex artery is a codominant vessel large and normal 5. The right coronary artery is a codominant vessel and has mid vessel 30% stenosis 6. The BRIDGES ventriculogram reveals normal ejection fraction estimated at 65% 7. The left ventricular end-diastolic pressure is 10 mmHg IMPRESSION: 1. Severe 2 vessel coronary artery disease as described above 2. Active thrombus in the mid LAD which represents the infarct vessel 3. Successful stenting the mid LAD stenosis reduced to 0% with 2 drug- eluting stents 4. Severe stenosis in the proximal ramus intermedius with successful stenting reducing the stenosis to 0% 5. Normal ejection fraction 6. Normal left ventricular end-diastolic pressure C. Echo, 07/18/2018, 2D 1. Left atrium is mildly enlarged, left ventricle is normal size, vi sually estimated ejection fraction 40%, there is marked hypokinesis involving mid to distal septum, anterior, and anteroapical wall. 2. The right atrium and right ventricle are normal size and contractility. 3. The aortic valve is minimally thickened and fibrosed. 4. The mitral and tricuspid valve leaflets are minimally thickened and 5. The pulmonic valve is poorly visualized. 6. No significant pericardial effusion noted. DOPPLER INTERROGATION: Doppler interrogation of the aortic, mitral and tricuspid valvular presence of mild mitral and tricuspid regurgitation, tricuspid regurgitation jet velocity is inadequate for calculation of the right ventricular systolic pressure, grade 1 diastolic dysfunction seen without tissue Doppler evidence of raised left atrial pressure. D. GXT myoview, 1. Normal ejection fraction of 65%. 2. Decrease activity within the apex which show some improvement on the delayed images suggesting an area of ischemia/vivien- infarct ischemia with a small area of ischemia high within the septum History of present illness: this wm with chest pain with several episodes about 5 this am with each lasting about 3 minutes- has no pain at this time - he had stents placed 07/18/18 and had abn myoview on 08/07/18 - he was in the ed 2 days ago - he reports more episodes of chest pain - has been compliant with meds and does use some tob and discussed with card and admitted The above per Dr. Barr. ER visit last week for recurrent, brief (less than 5 min) episodes of chest pain that had not responded to ranexa and imdur. Troponins were normal and he was released to undergo GXT myoview. Results showed evidence of recent NE with some vivien-infarction ischemia. Pt was notified with plans to pursue cardiac cath this week. Symptoms worsened over the weekend and even awaking him from sleep. Admitted for stabilization and further evaluation. Troponins have remained normal. Cardiololgy consulted. [facility] History Medical History: Reports:: Atherosclerotic Heart Disease, Cardiomyopathy Denies:: Cancer, Diabetes Mellitus Type 1, Diabetes Mellitus Type 2, MRSA Other Medical History: Reports: Arthritis, Sinus Problems Laterality Cases: Bilateral: Arthroscopy Shoulder, Tonsillectomy Other Surgeries: Yes: Cardiac Catheterization, Coronary Stent, Other Amputation: No Fractures: Yes (right & left pinky) - *Social History Educational Level: Completed High School Smoking Status: Current every day smoker Tobacco Type: cigarettes # Packs/Day (cigarettes): 1 #Yrs smoked (if former smoker): 45 Alcohol Intake: never Substance Use Type: opiates, other Occupational Status: employed Housing: house Household Members: significant other - Psychiatric History Expresses thoughts of harming self/others: None Suicide Plan Description: No Plan *Family Hx:: Stroke Meds Home Medications Medication Instructions Recorded Confirmed Type Methadone HCl [Methadose] 70 mg PO DAILY 07/17/18 08/10/18 History Aspirin [Aspirin 81mg EC Tab] 81 mg PO DAILY 07/28/18 08/10/18 History Atorvastatin Calcium [Lipitor 40mg 40 mg PO HS 07/28/18 08/10/18 History Tablet] Clopidogrel Bisulfate [Plavix 75mg 75 mg PO BID 07/28/18 08/10/18 History Tab] Lisinopril [Zestril 5mg 5 mg PO BID 07/28/18 08/10/18 History Tablet] Metoprolol Tartrate [Lopressor 12.5 mg PO BID 07/28/18 08/10/18 History 25mg tablet] Isosorbide Mononitrate [Imdur 30mg 30 mg PO DAILY 08/07/18 08/10/18 History ER tablet] Ranolazine [Ranexa] 1,000 mg PO DAILY 08/07/18 08/10/18 History Pantoprazole Sodium [Protonix 40mg 40 mg PO DAILY 08/10/18 08/10/18 History tablet] Varenicline Tartrate [Chantix] 0.5 mg PO BID 08/10/18 08/10/18 History Allergies Allergy/AdvReac Type Severity Reaction Status Date / Time No Known Allergies Allergy Verified 08/10/18 06:24 Review of Systems - *Cardiovascular Reports chest pain, Reports shortness of breath with activity - *Respiratory Reports shortness of breath with activity - *Gastrointestinal Denies abdominal pain - *Genitourinary Denies blood in urine - *Musculoskeletal Reports back pain - *Neurologic Denies behavioral changes, Denies seizure-like activity Exam Vital signs and Labs for Last 24 Hours: Temp Pulse Resp BP Pulse Ox 98.3 F 63 15 114/71 96 08/12/18 07:48 08/12/18 07:48 08/12/18 07:48 08/12/18 07:48 08/12/18 07:48 I & O for Last 24 hours: Intake & Output 08/09/18 08/10/18 08/11/18 08/12/18 11:59 11:59 11:59 11:59 Intake Total 1824 / 1824 2348 / 2348 Output Total 0 / 0 Balance 1824 / 1824 2348 / 2348 Weight 162 lb 165 lb 163 lb - *Routine Neck Exam Present: supple. Absent: JVD, carotid bruit - *Routine Respiratory Exam Present: CTA bilaterally. Absent: accessory muscle use, rales, rhonchi, wheezes - *Routine Cardiovascular Exam Present: RRR. Absent: murmur, gallop, rubs - *Routine Abdominal Exam Present: soft. Absent: tenderness, distended, guarding - *Routine Extremities Exam Absent: edema, calf tenderness - *Routine Neurological Exam Present: alert, oriented X3, moving all extremities Assessment and Plan (1) Angina at rest Current visit: Yes Status: Acute Category: Medical Code(s): I20.8 - Other forms of angina pectoris (2) Tobacco user Current visit: No Status: Chronic Category: Medical Code(s): Z72.0 - Tobacco use (3) CAD (coronary artery disease) Current visit: Yes Status: Chronic Qualifiers: Coronary Disease-Associated Artery/Lesion type: unspecified vessel or lesion type [place] vs. transplanted heart: [place] heart Associated angina: angina presence unspecified Qualified Code(s): I25.10 - Atherosclerotic heart disease of [place] coronary artery without angina pectoris Category: Medical Code(s): I25.10 - Atherosclerotic heart disease of [place] coronary artery without angina pectoris - Assessment and plan all Dx Assessment and Plan for all problems:: 1. Proceed with cardiac cath due to recurrent unstable angina and abnormal stress test. 2. Further recommendations to follow.
--- NOTE | 2018-08-12 08:28 | Progress Note ---
Internal Medicine - PN: Subj *Date: 08/12/18 *Time: 08:27 Interval history: pt doing ok this am and was seen by card and has pending cath Exam Vital signs and Labs for Last 24 Hours: Temp Pulse Resp BP Pulse Ox 98.3 F 63 15 114/71 96 08/12/18 07:48 08/12/18 07:48 08/12/18 07:48 08/12/18 07:48 08/12/18 07:48 I & O for Last 24 hours: Intake & Output 08/09/18 08/10/18 08/11/18 08/12/18 11:59 11:59 11:59 11:59 Intake Total 1824 / 1824 2348 / 2348 Output Total 0 / 0 Balance 1824 / 1824 2348 / 2348 Weight 162 lb 165 lb 163 lb - Constitutional no acute distress - *Routine HEENT Exam Head: Present: normocephalic Eye: Present: EOMI, PERRL ENT: Present: mucous membranes dry - *Routine Neck Exam Present: supple - *Routine Respiratory Exam Present: CTA bilaterally - *Routine Cardiovascular Exam Present: RRR, murmur - *Routine Abdominal Exam Present: soft - *Routine Extremities Exam Present: full ROM - *Routine Skin Exam Present: intact - *Routine Neurological Exam Present: alert, oriented X3, CN II-XII intact - Routine Psychiatric Exam Present: normal affect Assessment and Plan (1) Angina at rest Current visit: Yes Status: Acute Category: Medical Code(s): I20.8 - Other forms of angina pectoris (2) Tobacco user Current visit: No Status: Chronic Category: Medical Code(s): Z72.0 - Tobacco use (3) CAD (coronary artery disease) Current visit: Yes Status: Chronic Qualifiers: Coronary Disease-Associated Artery/Lesion type: unspecified vessel or lesion type [place] vs. transplanted heart: [place] heart Associated angina: angina presence unspecified Qualified Code(s): I25.10 - Atherosclerotic heart disease of [place] coronary artery without angina pectoris Category: Medical Code(s): I25.10 - Atherosclerotic heart disease of [place] coronary artery without angina pectoris
--- NOTE | 2018-08-12 15:59 | Discharge Summary ---
General - General Admission date:: 08/10/18 Discharge date: 08/12/18 HPI HPI: this wm with chest pain with several episodes about 5 this am with each lasting about 3 minutes- has no pain at this time - he had stents placed 07/18/18 and had abn myoview on 08/07/18 - he was in the ed 2 days ago - he reports more episodes of chest pain - has been compliant with meds and does use some tob and discussed with card and admitted Hospital Course Hospital Course: pt with several episodes of chest pain during hosp staay but no change in ekg or enz and he was seen by card -Tobacco use 2. 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 Chronic methadone use 4. CAD A. STEMI, 07/18/2018 B. cardiac cath, 07/18/2018, ANGIOGRAPHIC RESULTS: 1. The left main artery 2. The left anterior descending artery has proximal 10% stenoses with a ruptured plaque and a thrombus in the midportion of the LAD. The stenotic area at the ruptured plaque was approximately 50% stenosis. 3. The ramus intermedius has a proximal eccentric 80% stenosis 4. The circumflex artery is a codominant vessel large and normal 5. The right coronary artery is a codominant vessel and has mid vessel 30% stenosis 6. The BRIDGES ventriculogram reveals normal ejection fraction estimated at 65% 7. The left ventricular end-diastolic pressure is 10 mmHg IMPRESSION: 1. Severe 2 vessel coronary artery disease as described above 2. Active thrombus in the mid LAD which represents the infarct vessel 3. Successful stenting the mid LAD stenosis reduced to 0% with 2 drug- eluting stents 4. Severe stenosis in the proximal ramus intermedius with successful stenting reducing the stenosis to 0% 5. Normal ejection fraction 6. Normal left ventricular end-diastolic pressure C. Echo, 07/18/2018, 2D 1. Left atrium is mildly enlarged, left ventricle is normal size, visually estimated ejection fraction 40%, there is marked hypokinesis involving mid to distal septum, anterior, and anteroapical wall. 2. The right atrium and right ventricle are normal size and contractility. 3. The aortic valve is minimally thickened and fibrosed. The mitral and tricuspid valve leaflets are minimally thickened and 5. The pulmonic valve is poorly visualized. 6. No significant pericardial effusion noted. DOPPLER INTERROGATION: Doppler interrogation of the aortic, mitral and tricuspid valvular presence of mild mitral and tricuspid regurgitation, tricuspid regurgitation jet velocity is inadequate for calculation of the right ventricular systolic pressure, grade 1 diastolic dysfunction seen without tissue Doppler evidence of raised left atrial pressure. D. GXT myoview, 1. Normal ejection fraction of 65%. 2. Decrease activity within the apex which show some improvement on the delayed images suggesting an area of ischemia/vivien- infarct ischemia with a small area of ischemia high within the septum History of present illness: this wm with chest pain with several episodes about 5 this am with each lasting about 3 minutes- has no pain at this time - he had stents placed 07/18/18 and had abn myoview on 08/07/18 - he was in the ed 2 days ago - he reports more episodes of chest pain - has been compliant with meds and does use some tob and discussed with card and admitted The above per Dr. Barr. ER visit last week for recurrent, brief (less than 5 min) episodes of chest pain that had not responded to ranexa and imdur. Troponins were normal and he was released to undergo GXT myoview. Results showed evidence of recent [place] with some vivien-infarction ischemia. Pt was notified with plans to pursue cardiac cath this week. Symptoms worsened over the weekend and even awaking him from sleep. Admitted for stabilization and further evaluation. Troponins have remained normal. Cardiololgy consulted. NGIOGRAPHIC RESULTS: 1. The left main artery normal 2. The left anterior descending artery proximally normal followed by a stent in the mid segment which is widely patent with excellent distal and proximal transitioning 3. The circumflex artery is nondominant large vessel and normal 4. The right coronary artery is dominant and has proximal 10-20% stenosis mid vessel 20% stenosis 5. The BRIDGES ventriculogram reveals normal 65% 6. The left ventricular end-diastolic pressure 10 mmHg IMPRESSION: 1. Widely patent mid LAD stent 2. Normal ejection fraction 3. Mild nonflow limiting coronary disease PLAN: 1. Medical management 2. Evaluation noncardiac chest pain diac cath showed widely patent stents with normal LVEF. OK to discharge home on home meds with exception of discontinuing ranexa and imdur. Patient should follow up in 1-2 wks. Objective Vital signs: Temp Pulse Resp BP Pulse Ox 97.9 F 51 L 12 114/72 95 08/12/18 15:37 08/12/18 15:30 08/12/18 15:30 08/12/18 15:30 08/12/18 15:30 no acute distress - *Routine HEENT Exam Head: Present: normocephalic Eye: Present: EOMI, PERRL ENT: Present: mucous membranes dry - *Routine Neck Exam Present: supple - *Routine Respiratory Exam Present: CTA bilaterally - *Routine Cardiovascular Exam Present: RRR, murmur - *Routine Abdominal Exam Present: soft - *Routine Extremities Exam Present: full ROM - *Routine Skin Exam Present: intact - *Routine Neurological Exam Present: alert, oriented X3, CN II-XII intact - Routine Psychiatric Exam Present: normal affect DS: Diagnosis - Discharge Diagnosis (1) Angina at rest Status: Acute (2) Tobacco user Status: Chronic (3) CAD (coronary artery disease) Status: Chronic Discharge Plan - Patient Discharge Instructions ACTIVITY: Continue current activity DIET: continue same diet Patient Instructions: Angina, Cardiac Catheterization, Acute Coronary Syndrome, Surgical Site Infection, DI for Coronary Artery Disease - Follow up Plan Follow up with: Ronal Allen MD [Staff Physician] - 08/20/18 1:40 pm Disposition: Home, Self-Fdc Medications: Home Medications Medication Instructions Recorded Confirmed Type Methadone HCl [Methadose] 70 mg PO DAILY 07/17/18 08/10/18 History Aspirin [Aspirin 81mg EC Tab] 81 mg PO DAILY 07/28/18 08/10/18 History Atorvastatin Calcium [Lipitor 40mg 40 mg PO HS 07/28/18 08/10/18 History Tablet] Clopidogrel Bisulfate [Plavix 75mg 75 mg PO BID 07/28/18 08/10/18 History Tab] Lisinopril [Zestril 5mg 5 mg PO BID 07/28/18 08/10/18 History Tablet] Metoprolol Tartrate [Lopressor 12.5 mg PO BID 07/28/18 08/10/18 History 25mg tablet] Isosorbide Mononitrate [Imdur 30mg 30 mg PO DAILY 08/07/18 08/10/18 History ER tablet] Ranolazine [Ranexa] 1,000 mg PO DAILY 08/07/18 08/10/18 History Pantoprazole Sodium [Protonix 40mg 40 mg PO DAILY 08/10/18 08/10/18 History tablet] Varenicline Tartrate [Chantix] 0.5 mg PO BID 08/10/18 08/10/18 History Prescriptions/Medication Reconciliation: Continue Metoprolol Tartrate [Lopressor 25mg tablet] 12.5 mg PO BID Lisinopril [Zestril 5mg Tablet] 5 mg PO BID Clopidogrel Bisulfate [Plavix 75mg Tab] 75 mg PO BID Methadone HCl [Methadose] 70 mg PO DAILY Atorvastatin Calcium [Lipitor 40mg Tablet] 40 mg PO HS Aspirin [Aspirin 81mg EC Tab] 81 mg PO DAILY Pantoprazole Sodium [Protonix 40mg tablet] 40 mg PO DAILY Varenicline Tartrate [Chantix] 0.5 mg PO BID Discontinued Ranolazine [Ranexa] 1,000 mg PO DAILY Isosorbide Mononitrate [Imdur 30mg ER tablet] 30 mg PO DAILY
[2018-08-12 16:07] VITALS: BP 164/83
== END 2018-08-12 16:44 | disposition home or self-care (01) ==
LOC: ER 06:18 → ICU 06:18 → 2ND 08-11 14:38 → ICU 08-11 14:54
PROVIDERS: ADMIT Emergency Medicine; ATTEND Emergency Medicine

== ENCOUNTER → 2018-09-03 09:15 | Outpatient (CLI) | payer BC, SELFPAY ==
--- NOTE | 2018-09-03 09:18 | US_ITS ---
US abdomen limited HISTORY: Chest pain ORDERING PHYSICIAN: Cornelius Gallegos MD PATIENT AGE: 53 years Comparison: None Procedure Sagittal, transverse and decubitus imaging right upper quadrant performed. FINDINGS: Pancreas. Unremarkable. Head body and medial tail visualized and grossly satisfactory. GALLBLADDER - No stones are evident. There is no gallbladder wall thickening. Gallbladder is mildly distended measuring up to 9.4 cm length.. Common duct does is generous measuring 6.3 mm at hilum of liver mildly dilated measuring up to 7.4 mm just inferior to the hilum of the liver. Liver. No focal lesions. The central biliary ducts are upper normal prominent Right kidney: Normal size 10.2 cm in length Unremarkable appearing. No hydronephrosis. . IMPRESSION:. Mild distended gallbladder, but no gallstones identified. Common duct generous- borderline to to mildly dilated measuring up to 7.5 mm just below hilum of liver.. Is Bilirubin elevated? Suggest CT abdomen with contrast to further evaluate particularly if so. Liver. Central biliary ducts upper normal prominence . Right kidney and pancreas unremarkable
== END ==
PROVIDERS: PCP Internal Medicine Adolescent Medicine; Visit Provider Internal Medicine Adolescent Medicine
DX: R10.11 Right upper quadrant pain (principal)
CPT/HCPCS: 76705

== ENCOUNTER → 2018-09-11 08:52 | Outpatient (CLI) | payer BC, SELFPAY | PROVIDERS: PCP Internal Medicine Adolescent Medicine; Visit Provider Surgery | DX: R10.13 Epigastric pain (principal) ==

== ENCOUNTER → 2018-09-16 09:29 | Outpatient (CLI) | payer BC, SELFPAY ==
--- NOTE | 2018-09-16 09:30 | CT_ITS ---
CT abdomen pelvis w con CLINICAL HISTORY: Abdominal pain, dilated common bile duct seen on ultrasound study TECHNIQUE: Axial images obtained with sagittal and coronal reformats. All CT scans at the facility use one or more dose reduction, viz: automated exposure control, ma/kV adjustment per patient size (including targeted exams where dose is matched to indication, i.e. head), or iterative reconstruction technique. COMPARISON: Ultrasound abdomen limited 09/03/2018 PROCEDURE: Oral Contrast:Given IV Contrast: 75 ml IV Isovue 370 was injected intravenously. FINDINGS: Lung bases: Clear, there is no pleural fluid ABDOMEN: Liver: The liver is normal in size and there is borderline prominence of the central biliary ducts. Gallbladder: Nondistended. No radio opaque stones. The common bile duct is mildly and diffusely dilated down into the head of the pancreas. Pancreas: Normal size and there is no obvious mass involving the head of the pancreas. Spleen: Unremarkable. Adrenals: Unremarkable Kidneys/ureters: No masses. No renal calculi. No hydronephrosis. No perinephric fluid collections. No ureteral dilatation or obvious ureteral calculi. There is symmetrical function both kidneys following injection of IV contrast. Stomach bowel: The stomach is moderately filled with oral contrast and appears normal. The small bowel is normal. The appendix appears normal. Peritoneum: No abnormal fluid collections. No obvious inflammatory changes. Lymph nodes: No enlarged lymph nodes apparent. Vasculature: No evidence of abdominal aortic aneurysm. No retroperitoneal hemorrhage evident. Bones: Unremarkable appearing bony structures. No lytic or blastic changes. No obvious fractures. PELVIS: Reproductive: Unremarkable, the prostate is normal in size. Bladder: Partially decompressed but otherwise appear normal Appendix: Unremarkable. No distention or periappendiceal phlegmonous change. IMPRESSION: Borderline prominent central biliary ducts and borderline size common bile duct with no abnormality in the head of the pancreas and no definite common bile duct stone identified, other nonacute findings as described above
--- NOTE | 2018-09-16 10:18 | HMH.ITSHM ---
Current Home Medications as stated by this patient Joshua Rosa or employee representative. []METHADONELIPITOR,PLAVIX,ISOSAORBIDE,LOPRESSOR ASA LISINOPRIL PANTOPRAZOLE CHANITX
== END ==
PROVIDERS: PCP Internal Medicine Adolescent Medicine; Visit Provider Surgery
DX: R93.5 Abnormal findings on diagnostic imaging of other abdominal regions, including retroperitoneum (principal)
CPT/HCPCS: 74177; Q9967

== ENCOUNTER → 2018-09-19 08:48 | Outpatient (CLI) | payer BC, SELFPAY ==
--- NOTE | 2018-09-19 08:50 | FL_ITS ---
FL upper GI small bowel HISTORY: ITS.REASON: epigastric pain ORDERING PHYSICIAN: Nic Bravo MD PATIENT AGE: 53 years Comparison: None FINDINGS: The esophagus, stomach, and duodenum have an unremarkable appearance. There is no evidence of hiatal hernia. No ulcer or mass evident. No mucosal abnormalities apparent. There is normal peristalsis. The duodenal C-loop is nondisplaced. Small bowel has an unremarkable appearance. No evidence of dilatation or mass or mucosal abnormality. FLUOROSCOPY TIME : 2 minutes and 55 seconds. IMPRESSION: Negative upper GI and small bowel follow-through
== END ==
PROVIDERS: PCP Internal Medicine Adolescent Medicine; Visit Provider Surgery
DX: R10.13 Epigastric pain (principal)
CPT/HCPCS: 74245

== ENCOUNTER 2018-11-19 08:21 | Outpatient (RCR) | payer BC, SELFPAY | END 2018-12-11 08:55 | disposition home or self-care (01) | LOC: PT 08:21 | PROVIDERS: Visit Provider Internal Medicine | DX: I25.10 Atherosclerotic heart disease of native coronary artery without angina pectoris (principal); I51.9 Heart disease, unspecified; E78.5 Hyperlipidemia, unspecified; Z72.0 Tobacco use ==

== ENCOUNTER → 2018-12-23 09:33 | Outpatient (CLI) | payer BC, SELFPAY ==
--- NOTE | 2018-12-23 09:41 | CT_ITS ---
CT chest wo/w con HISTORY: ITS.REASON: CAD,CP, DIASTOLIC DYSFUNCTION,DYSPNEA, smoker ORDERING PHYSICIAN: Ronal Allen MD PATIENT AGE: 53 years COMPARISON: None Technique: Axial images obtained without and following the administration of 75 mL of Optiray 350 . Sagittal, and coronal reformatted images are also generated and reviewed. All CT scans at the facility use one or more dose reduction, viz: automated exposure control, ma/kV adjustment per patient size (including targeted exams where dose is matched to indication, i.e. head), or iterative reconstruction technique. FINDINGS: No evidence of aortic aneurysm or dissection. Pulmonary arteries are normal in caliber with no evidence of central filling defect. There are coronary artery calcifications and/or stents. No mediastinal or hilar mass or adenopathy. There is a small precarinal lymph node at 1.8 x 1 cm. There are severe bullous emphysematous changes in the upper lobes right more extensive than left. Calcified nodules are present in the left upper lobe. Scattered fibrotic changes are present. No suspicious pulmonary nodule effusion or infiltrate is evident. There is a noncalcified nodule in the left upper lobe anteriorly at 5 mm and an additional 3 mm noncalcified nodule in the left upper lobe. There is some pleural thickening in the left apex. A noncalcified nodule present in this right upper lobe centrally at 5 mm. No acute bony findings. IMPRESSION: 1. Upper lobe bullous emphysematous changes more extensive on the right with scattered calcified nodules in the left upper lobe and left apical pleural thickening. 2. Small bilateral noncalcified nodules which are less than 6 mm. 6 month follow-up recommended.
--- NOTE | 2018-12-23 10:00 | HMH.ITSHM ---
Current Home Medications as stated by this patient Joshua Rosa or solar manufacturer's representative. []issorbide,plavixlipitordubanone
== END ==
PROVIDERS: PCP Internal Medicine Adolescent Medicine; Visit Provider Internal Medicine
DX: R06.00 Dyspnea, unspecified (principal); R07.9 Chest pain, unspecified; E78.2 Mixed hyperlipidemia; I51.89 Other ill-defined heart diseases; Z72.0 Tobacco use
CPT/HCPCS: 71270; Q9967

== ENCOUNTER → 2019-01-01 08:21 | Outpatient (CLI) | payer BC, SELFPAY | PROVIDERS: PCP Internal Medicine Adolescent Medicine; Visit Provider Internal Medicine | DX: R06.00 Dyspnea, unspecified (principal); R07.9 Chest pain, unspecified; E78.2 Mixed hyperlipidemia; I25.10 Atherosclerotic heart disease of native coronary artery without angina pectoris; Z72.0 Tobacco use | CPT/HCPCS: 94060; 94726; 94729 ==

== ENCOUNTER → 2019-01-21 10:59 | Outpatient (CLI) | payer BC, SELFPAY ==
[2019-01-21 14:23] VITALS: BP 115/70; BP 120/75; PULSE 107; PULSE 87; RESP 14; RESP 18; O2SAT 94
== END ==
PROVIDERS: PCP Internal Medicine Adolescent Medicine; Visit Provider Physician Assistant
DX: R09.02 Hypoxemia (principal)
CPT/HCPCS: 94618

== ENCOUNTER → 2019-05-28 12:37 | Outpatient (CLI) | payer BC, SELFPAY ==
--- NOTE | 2019-05-28 | CA_ITS ---
APPROVED REPORT EXAM: Comprehensive 2D, Doppler, and color-flow Echocardiogram [employer] Vendor: Iesha Snyder, RT(R) Ht: 5 ft 9 in Wt: 140lbs BSA: 1.78 BP: 118/78 mmHg Indications: COPD, Shortness of Breath, Palpitations, Fatigue, Hyperlipidemia 2D Dimensions IVSd 1.10 cm M: 0.6-1.2 LVEF (Visual) 56.60 % PWd 1.10 cm M: 0.6 - 1.2 LVDd 4.10 cm M: 4.2 - 5.9 LVDs 2.90 cm M: 2.5 - 4.0 LVOT 2.10 cm (M/F) 1.5-2.5 M-Mode Dimensions LA Diam 2.30 cm (1.9-4.0) Ao Diam 3.10 cm (2.0-3.7) LV Diastology E/A Ratio 0.8 MED E' 9.46 (< 7 cm/sec) E'/MED E' Ratio 6.50 (>14) LAT E' 12.90 (<10 cm/sec) E/LAT E' Ratio 4.70 (>14) Mitral Valve MV E Max Kyle. 61.20 (40-130 cm/s) MV A Velocity 72.10 (40-130 cm/s) E/A Ratio 0.80 Left Ventricle Left atrium is normal size, left ventricle is normal size, there is no concentric left ventricular hypertrophy, visually estimated ejection fraction 55% with no regional wall motion abnormality, diastolic parameters are within normal range. Right Ventricle Right atrium and right ventricular normal size and contractility. Aortic Valve Aortic valve is minimally thickened and fibrosed. There is no aortic stenosis aortic insufficiency. Mitral Valve Mitral valve is structurally normal, there is mild mitral regurgitation. Tricuspid Valve Tricuspid valve is grossly normal, there is mild tricuspid regurgitation. Tricuspid regurgitation jet velocity is inadequate for calculation of the right ventricular systolic pressure, Pulmonic Valve Pulmonic valve is poorly visualized. Great Vessels Aortic root is normal size. Pericardium No significant pericardial effusion noted. Conclusion 1. Normal left ventricular size, preserved left ventricular systolic function, visually estimated ejection fraction 55% with no regional wall motion abnormality, diastolic parameters are within normal range. 2. Mild mitral and tricuspid regurgitation 3. No significant pericardial effusion noted. Electronically signed by : Phuc Alberto, 05/30/2019 08:45:49
== END ==
PROVIDERS: PCP Internal Medicine Adolescent Medicine; Visit Provider Internal Medicine Adolescent Medicine
DX: I50.22 Chronic systolic (congestive) heart failure (principal)
CPT/HCPCS: 93306

== ENCOUNTER → 2019-09-04 14:18 | Outpatient (CLI) | payer BC, SELFPAY ==
--- NOTE | 2019-09-04 14:24 | CT_ITS ---
PROCEDURE: CT CHEST WO/W CON CLINCAL INDICATION: LUNG NODULE Follow-up lung nodules COMPARISON: CHESTWW CT chest wo/w con from 12/23/2018 TECHNIQUE: IV Contrast: 75ml Optiray 350 Axial images obtained with sagittal and coronal reformats. All CT scans at the facility use one or more dose reduction, viz: automated exposure control, ma/kV adjustment per patient size (including targeted exams where dose is matched to indication, i.e. head), or iterative reconstruction technique. FINDINGS: Scattered small nodes are present in the mediastinum. There are coronary artery calcifications. There is normal heart size. There are severe panlobular emphysematous changes with bullous changes in the upper lobes. Scattered calcified granulomas are noted. There is a 5 mm nodule in the right middle lobe which is unchanged.. 5 mm nodules present in the left upper lobe anteriorly unchanged additional 4 mm left upper lobe anteriorly unchanged. No new nodules are evident. No effusions or infiltrates. Upper abdominal images show scattered small nodes in the epigastric region not significantly changed IMPRESSION: Stable CT appearance of the chest. No change in the small bilateral pulmonary nodules. Recommend annual screening LDCT. Panlobular emphysema with bullous changes and old granulomatous disease Dictated by: Bill Freeman MD 09/06/2019 15:34 Electronically signed by Bill Freeman MD in [place] 09/06/2019 15:34
== END ==
PROVIDERS: PCP Internal Medicine Adolescent Medicine; Visit Provider Internal Medicine Adolescent Medicine
DX: R91.1 Solitary pulmonary nodule (principal)
CPT/HCPCS: 71270; Q9967

== ENCOUNTER → 2019-12-01 09:34 | Outpatient (CLI) | payer BC, SELFPAY | PROVIDERS: PCP Internal Medicine Adolescent Medicine; Visit Provider Physician Assistant | DX: R07.2 Precordial pain (principal); R07.9 Chest pain, unspecified; I21.9 Acute myocardial infarction, unspecified; I25.2 Old myocardial infarction; I20.8 Other forms of angina pectoris; I42.9 Cardiomyopathy, unspecified; Z95.1 Presence of aortocoronary bypass graft; Z72.0 Tobacco use | CPT/HCPCS: 93225; 93226 ==

== ENCOUNTER → 2021-11-03 07:44 | Outpatient (CLI) | payer BC, SELFPAY ==
--- NOTE | 2021-11-03 07:47 | CT_ITS ---
FINAL REPORT CLINICAL HISTORY: H/O NICOTINE DEPENDENCE smoker 1ppd x 50 years copd, emphysema COMPARISON: 09/04/2019 FINDINGS: Axial images were obtained from the lung apex to the mid abdomen by computed tomography. Low-dose protocol was utilized. CTDl vol(mGy): 2.90 DLP (mGy-cm): 105.77 FINDINGS: The patient is status post median sternotomy. There is no axillary adenopathy. There are stable mildly enlarged mediastinal lymph nodes. The heart size is normal. There is no pericardial or pleural effusion. Limited images of the upper abdomen are unremarkable. Lung window images demonstrate there is severe emphysema. Mild scarring is seen. There are multiple calcified granulomas. There is a 5 mm right mid lung nodule well seen on image 52 which is stable. There are 2 stable small nodules in the anterior left upper lobe. The larger of these measures 5 mm in the medial anterior left upper lobe. There is a new soft tissue nodular opacity in the anterior medial left upper lobe measuring 28 mm on image 33. IMPRESSION: Lung RADS category 4B. Recommend PET CT for further evaluation. Reviewed, Interpreted and Dictated by Saeid Mcdonnell III, MD Transcribed by Breana Jurado Authenticated by Saeid Mcdonnell III, MD on 11/03/2021 09:18:30 AM [facility]
== END ==
PROVIDERS: PCP Internal Medicine Adolescent Medicine; Visit Provider Internal Medicine Adolescent Medicine
DX: Z87.891 Personal history of nicotine dependence (principal); Z12.2 Encounter for screening for malignant neoplasm of respiratory organs
CPT/HCPCS: 71271

== ENCOUNTER → 2021-12-21 09:20 | Outpatient (CLI) | payer BC, SELFPAY ==
--- NOTE | 2021-12-21 09:27 | XR_ITS ---
FINAL REPORT CLINICAL HISTORY: left shoulder pain FINDINGS: LEFT SHOULDER Three views demonstrate no acute fracture or dislocation. There is mild acromioclavicular and glenohumeral joint degenerative change. There are postoperative changes of the glenoid. The visualized bony structures are well aligned. No soft tissue abnormality is seen. IMPRESSION: Mild degenerative changes. Reviewed, Interpreted and Dictated by Saeid Mcdonnell III, MD Transcribed by Rowan Olson Authenticated by Saeid Mcdonnell III, MD on 12/21/2021 11:30:21 AM [facility]
== END ==
PROVIDERS: PCP Internal Medicine Adolescent Medicine; Visit Provider Orthopaedic Surgery
DX: M25.512 Pain in left shoulder (principal)
CPT/HCPCS: 73030

== ENCOUNTER 2022-01-04 07:52 | Outpatient (RCR) | payer BC, SELFPAY ==
--- NOTE | 2022-01-04 08:58 | HMH.PTOPEV ---
PT Outpatient Evaluation Rehab PT Outpatient Evaluation Start: 01/04/22 08:36 Freq: Status: Active Protocol: Document 01/04/22 08:36 JULIET (Rec: 01/04/22 08:57 JULIET [id number]) Electronically Signed By Tyrone Castro, PT 01/04/22 08:36 Outpatient Therapy Subjective History Subjective History Patient is a 56 year old male presenting to outpatient PT with reports of L shoulder pain/instability that have progressively gotten worse over the past few months. 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 Most recent imaging indicates mild degenerative changes. Comorbidities include hx of PR , stent x 2, bypass sx and COPD. Chief Complaint Pain,Stiff,Weakness Symptom Type Dull Symptoms Relieved By Rest/Positioning Symptoms Aggravated By Physical Activity,Lifting Prior Functional Limitations None Current Functional Limitations Reaching,Lifting,Housework Symptom Description Intermittent Level of pain today (0-10) 0 Pain scale - at its best (0-10) 0 Pain scale - at its worst (0-10) 5 Shoulder/Elbow Eval Shoulder Objective Measurements Posture Shoulder Posture Sitting Position (L) Forward,(R) Forward Shoulder ROM Left Shoulder ROM Limitations Soft Tissue Tightness Shoulder Abduction Active Range of 100 Motion (degrees) Shoulder Flexion Active Range of Motion 84 (degrees) Query Text: Shoulder External Rotation Passive Range 80 of Motion (degrees) Shoulder Internal Rotation Passive Range 75 of Motion (degrees) pain with active ROM shoulder exam left standard Shoulder MMT Shoulder Abduction Strength Grade 4 Good Shoulder Flexion Strength Grade 4 Good Shoulder External Rotation Strength 4- Good- Grade Shoulder Internal Rotation Strength 4- Good- Grade Shoulder Special Tests impingement sign present shoulder exam left standard Shoulder Drop Arm Test Negative Left Shoulder Cross-Over Impingement Test Positive Left Shoulder Empty Can (Supraspinatus) Test Positive Left Shoulder Interiano-[place] Impingement Positive Left Test Shoulder Neer Impingement Test
== END 2022-01-04 07:55 | disposition home or self-care (01) ==
LOC: PT 07:52
PROVIDERS: Visit Provider Orthopaedic Surgery
DX: M25.512 Pain in left shoulder (principal)
CPT/HCPCS: 97163

== ENCOUNTER → 2022-09-19 12:31 | Outpatient (CLI) | payer BC, SELFPAY | PROVIDERS: PCP Internal Medicine Adolescent Medicine; Visit Provider Nurse Practitioner | DX: R00.2 Palpitations (principal); I25.10 Atherosclerotic heart disease of native coronary artery without angina pectoris; I42.9 Cardiomyopathy, unspecified; I51.9 Heart disease, unspecified; E78.2 Mixed hyperlipidemia; Z72.0 Tobacco use; Z95.1 Presence of aortocoronary bypass graft | CPT/HCPCS: 93270 ==

== ENCOUNTER → 2022-10-28 12:21 | Outpatient (CLI) | payer BC, SELFPAY ==
[2022-10-28 12:39] LABS: Basophils # 0.2 K/mm3 (0-0.2); Basophils % 1.3 % (0.1-2.0); Eosinophils # 0.3 K/mm3 (0.0-0.4); Eosinophils % 2.7 % (0.1-12.0); Hematocrit 46.8 % (42.0-52.0); Hemoglobin 15.5 g/dL (14.1-18.0); Lymphocytes # 4.5 K/mm3 (0.7-4.5); Lymphocytes % 38.3 % (10-50); Mean Corpuscular HGB Conc 33.2 g/dL (31.8-35.4); Mean Corpuscular Hemoglobin 31.2 pg (27.0-31.2); Mean Corpuscular Volume 93.8 fl (80-94); Mean Platelet Volume 8.5 fl (7.4-10.4); Monocytes # 0.7 K/mm3 (0.1-1.0); Monocytes % 5.8 % (1.7-9.3); Neutrophils # 6.1 K/mm3 (1.8-7.8); Neutrophils % 51.8 % (37.0-80.0); Platelet Count 329 K/mm3 (142-424); Red Blood Count 4.99 M/mm3 (4.60-6.20); Red Cell Distribution Width 13.7 % (11.5-17.5); White Blood Count 11.7 K/mm3 (4.8-10.8)
[2022-10-28 13:18] LABS: Alanine Aminotransferase 21 U/L (12-78); Albumin Level 4.3 g/dl (3.5-5.0); Alkaline Phosphatase 125 U/L (38-126); Anion Gap 8.9 mEq/L (5-15); Aspartate Amino Transferase 22 U/L (17-59); Bilirubin,Direct 0.2 mg/dl (0.0-0.4); Bilirubin,Indirect 0.2 mg/dL (0.0-0.9); Bilirubin,Total 0.4 mg/dl (0.2-1.3); Bilirubin,Unconjugated 0.3 mg/dL (0.0-1.1); Blood Urea Nitrogen 11 mg/dl (9-20); Carbon Dioxide 31 mmol/L (22.0-30.0); Chloride 106 mmol/L (98-107); Chol/HDL Ratio 3.5 (1-3.5); Cholesterol 132 mg/dl (140-200); Estimated Glomerular Filt Rate 86 ml/min (>60); GFR (African American) 105 ML/MIN (>60); Glucose 100 mg/dl (74-100); HDL Cholesterol 38 mg/dl (40-60); Potassium 4.9 mmoL/L (3.5-5.1); Sodium 141 mmol/L (136-145); Total Protein,Serum 7.1 g/dl (6.3-8.2); Triglycerides 82 mg/dl (30-150); VLDL Cholesterol 16 mg/dL (0-40)
[2022-10-28 13:29] LABS: Direct LDL Cholesterol 80.48 mg/dL (100-129)
[2022-10-28 13:33] LABS: Free T4 (Free Thyroxine) 1.06 ng/dl (0.78-2.19)
[2022-10-28 13:47] LABS: Thyroid Stimulating Hormone 2.58 uIU/mL (0.465-4.68)
== END ==
PROVIDERS: Nurse Practitioner; PCP Internal Medicine Adolescent Medicine; Visit Provider Internal Medicine
DX: R06.00 Dyspnea, unspecified (principal); R00.2 Palpitations; I25.10 Atherosclerotic heart disease of native coronary artery without angina pectoris; I11.9 Hypertensive heart disease without heart failure; I42.9 Cardiomyopathy, unspecified; E78.2 Mixed hyperlipidemia; E11.9 Type 2 diabetes mellitus without complications; I63.9 Cerebral infarction, unspecified; Z95.1 Presence of aortocoronary bypass graft; Z72.0 Tobacco use
CPT/HCPCS: 36415; 80048; 80061; 80076; 84439; 84443; 85025

== ENCOUNTER 2023-08-14 18:19 | Emergency (ER) | payer BC, SELFPAY ==
[2023-08-14] VITALS (9 sets, daily range): BP systolic 163–208; BP diastolic 85–104; PULSE 61–93; RESP 9–19; TEMP 36.7–37.1; O2SAT 97–100; BMI 25.0
--- NOTE | 2023-08-14 19:35 | EXP.UTC ---
Discharge Plan Disposition Patient Disposition: Home, Self-Care Prescriptions Prescriptions: No Action aspirin 81 mg tablet,delayed release (DR/EC) 81 mg PO DAILY Qty: 30 5RF methadone 40 mg tablet,soluble 85 mg PO DAILY Referrals Follow up/Referrals: Jaun Kendall MD [Primary Care Provider] - See instructions Activity Restrictions/Add. Instructions Additional Instructions/Restrictions: Please follow-up with your primary care provider. Please return to the emergency department if you develop any new or worsening symptoms or become concerned for your health. Clinical Impressions Clinical Impression: Asymptomatic hypertension Discharge ED Provider: Og Link [facility] General Chief complaint: Recheck/Abnormal Lab/Rx Stated complaint: HBP 195/98 Time Seen by Provider: 08/14/23 19:35 Related Data Home Medications Medication Instructions Recorded Confirmed methadone 40 mg soluble tablet 85 mg PO DAILY 11/01/22 08/14/23 Previous Rx's Medication Instructions Recorded aspirin 81 mg tablet,delayed 81 mg PO DAILY heart #30 tabs 12/22/19 release Allergies Allergy/AdvReac Type Severity Reaction Status Date / Time bisoprolol Allergy Severe Hives Verified 08/14/23 19:57 [facility] Disclaimer: The information contained in this section may have been updated after the patient was seen, as this information can be updated by other users. Medical History Palpitations Surgical History S/P CABG x 1 S/P CABG x 2 Social History Smoking Status: Current every day smoker tobacco type: cigarettes packs per day: 1 second hand exposure: Yes alcohol intake: never substance use type: opiates and other current occupational status: employed Travel in the last 8 weeks: None household members: significant other housing: house current occupation: paint/wallpaper current occupational exposures/hazards: No caffeine: Yes ROS Obtained: Yes All systems reviewed & no additional complaints except as documented Constitutional Constitutional: Denies chills and Denies fever(s) Eyes Eyes: Denies eye discharge ENT Ears, Nose, Mouth, and Throat: Denies dizziness, Denies otalgia and Denies sore throat Cardiovascular Cardiovascular: Denies chest pain Respiratory Respiratory: Denies shortness of breath, Denies chest congestion, Denies cough, Denies stridor and Denies wheezing Gastrointestinal Gastrointestingal: Denies nausea or vomiting Musculoskeletal Musculoskeletal: Reports system reviewed and no additional complaints, except as documented and Denies arthralgias Integumentary/Breasts Skin/Breast: Denies rash Neurologic Neurologic: Denies dizziness and Denies paresthesias Allergic/Immunologic Allergic/Immunologic: Denies wheezing Physical Exam General General appearance: alert and in no apparent distress Head Head exam: atraumatic, normocephalic and normal inspection Eye Eye exam: Present normal appearance, PERRL and EOMI ENT ENT exam: Present normal exam, normal oropharynx, mucous membranes moist, TM's normal bilaterally and normal external ear exam Neck Neck exam: Present normal inspection, full ROM and trachea midline; Absent meningismus or lymphadenopathy Chest Chest inspection: Present normal inspection and symmetric chest wall rise; Absent tenderness Respiratory Respiratory exam: Present normal lung sounds bilaterally; Absent respiratory distress Cardiovascular Cardiovascular exam: Present regular rate and normal rhythm; Absent JVD Abdominal Exam Abdominal exam: Present soft and normal bowel sounds; Absent distention, tenderness or guarding Extremities Exam Extremities exam: Present normal inspection, full ROM and normal capillary refill; Absent calf tenderness Back Exam Back exam: Present normal inspection; Absent tender
--- NOTE | 2023-08-14 20:38 | PC.NURSE ---
in room talking with patient at this time.
[2023-08-14 20:48] LABS: Basophils # 0.1 K/mm3 (0-0.2); Basophils % 0.4 % (0.1-2.0); Eosinophils # 0.2 K/mm3 (0.0-0.4); Eosinophils % 1.5 % (0.1-12.0); Hematocrit 49.6 % (42.0-52.0); Hemoglobin 16.1 g/dL (14.1-18.0); Lymphocytes # 3.1 K/mm3 (0.7-4.5); Lymphocytes % 29.4 % (10-50); Mean Corpuscular HGB Conc 32.5 g/dL (31.8-35.4); Mean Corpuscular Hemoglobin 31.1 pg (27.0-31.2); Mean Corpuscular Volume 95.9 fl (80-94); Mean Platelet Volume 8.5 fl (7.4-10.4); Monocytes # 0.6 K/mm3 (0.1-1.0); Neutrophils # 6.6 K/mm3 (1.8-7.8); Neutrophils % 62.7 % (37.0-80.0); Platelet Count 254 K/mm3 (142-424); Red Blood Count 5.17 M/mm3 (4.60-6.20); Red Cell Distribution Width 13.8 % (11.5-17.5); White Blood Count 10.6 K/mm3 (4.8-10.8)
[2023-08-14 20:50] LABS: Chloride 103 mmol/L (98-107); Sodium 140 mmol/L (136-145)
[2023-08-14 20:51] LABS: Potassium 3.6 mmoL/L (3.5-5.1)
[2023-08-14 20:53] LABS: Alanine Aminotransferase 29 U/L (12-78); Alkaline Phosphatase 135 U/L (38-126); Aspartate Amino Transferase 33 U/L (17-59); Bilirubin,Total 0.4 mg/dl (0.2-1.3); Blood Urea Nitrogen 7 mg/dl (9-20); Creatinine Clearance Estimated 104 mL/min (50-200); Estimated Glomerular Filt Rate 99 ml/min (>60); GFR (African American) 119 ML/MIN (>60)
[2023-08-14 20:54] LABS: Albumin Level 4.6 g/dl (3.5-5.0); Albumin/Globulin Ratio 1.4 (1.1-1.8); Anion Gap 10.6 mEq/L (5-15); Carbon Dioxide 30 mmol/L (22.0-30.0); Globulin 3.4 g/dL (1.3-3.2); Glucose 112 mg/dl (74-100)
[2023-08-14 21:13] LABS: Troponin I < 0.01 ng/ml (0.00-0.034)
--- NOTE | 2023-08-14 21:15 | ECG_ITS ---
APPROVED REPORT Exam: Resting ECG HR:58 bpm ECG Measurements Heart Rate 58 AXES UT 185 P 68 QRSd 92 QRS 97 QT 429 T 69 QTc 426 Conclusion SINUS BRADYCARDIA POSSIBLE LEFT ATRIAL ENLARGEMENT [-0.1mV P-WAVE IN V1/V2] BORDERLINE RIGHT AXIS DEVIATION [QRS AXIS > 90] BORDERLINE ECG UNCONFIRMED REPORT Electronically signed by : Jaun Kendall MD 08/15/2023 18:25:58
== END 2023-08-14 22:45 | disposition home or self-care (01) ==
LOC: UTC 18:58 → ER 20:18
PROVIDERS: Emergency Provider Emergency Medicine; PCP Internal Medicine Adolescent Medicine
DX: R00.1 Bradycardia, unspecified; F17.210 Nicotine dependence, cigarettes, uncomplicated; Z95.5 Presence of coronary angioplasty implant and graft; I25.119 Atherosclerotic heart disease of native coronary artery with unspecified angina pectoris; I11.9 Hypertensive heart disease without heart failure
CPT/HCPCS: 80053; 84484; 85025; 93005; 99283

== ENCOUNTER 2023-09-26 07:56 | Outpatient (CLI) | payer BC, SELFPAY ==
--- NOTE | 2023-09-26 07:57 | CA_ITS ---
FINAL REPORT TECHNIQUE: Grayscale, color Doppler and duplex Doppler ultrasound of the kidneys, aorta and renal arteries was performed. Multiple velocities were measured. CLINICAL HISTORY: HTN,SMOKER FINDINGS: Aorta velocity: 97 cm/sec Right kidney: 10.1 cm. No evidence of hydronephrosis or mass. Right intrarenal RI: 0.57-0.69 Right renal artery velocity: 238 cm/sec. Right RAR (Renal artery-Aortic Ratio): 2.5 Left Kidney: 9.1 cm. No evidence of hydronephrosis or mass. Left intrarenal RI: 0.73-0.78 Left renal artery velocity: 240 cm/sec. Left RAR (Renal Artery-Aortic Ratio): 2.5 IMPRESSION: Less than 60% stenosis bilateral renal arteries. Consider correlation with CT angiogram or postcontrast MR angiogram. Reviewed, Interpreted and Dictated by Saeid Mcdonnell III, MD Transcribed by Tere Zhang Authenticated and [facility]
--- NOTE | 2023-09-26 08:29 | US_ITS ---
FINAL REPORT CLINICAL HISTORY: I10 - Essential (primary) hypertension COMPARISON: None FINDINGS: RENAL ULTRASOUND: The right kidney measures 10.1 cm in length, while the left kidney measures 8.6 cm in length. No evidence of hydronephrosis or perinephric fluid collections are identified. There is slight thinning of the cortex in the kidneys bilaterally. IMPRESSION: Slight thinning of the renal cortex in the kidneys bilaterally, otherwise unremarkable renal ultrasound. Reviewed, Interpreted and Dictated by Saeid Mcdonnell III, MD Transcribed by Randi Arevalo Authenticated and . [facility]
== END 2023-09-26 23:59 ==
PROVIDERS: PCP Internal Medicine Adolescent Medicine; Visit Provider Physician Assistant
DX: I10 Essential (primary) hypertension (principal); Z72.0 Tobacco use
CPT/HCPCS: 76770; 93976

== ENCOUNTER 2023-11-19 07:13 | Outpatient (CLI) | payer BC, SELFPAY ==
[2023-11-19 07:32] LABS: Basophils # 0.1 K/mm3 (0-0.2); Eosinophils # 0.3 K/mm3 (0.0-0.4); Eosinophils % 3.3 % (0.1-12.0); Hematocrit 49.1 % (42.0-52.0); Hemoglobin 15.5 g/dL (14.1-18.0); Lymphocytes # 3.8 K/mm3 (0.7-4.5); Lymphocytes % 38.8 % (10-50); Mean Corpuscular HGB Conc 31.6 g/dL (31.8-35.4); Mean Corpuscular Hemoglobin 31.5 pg (27.0-31.2); Mean Corpuscular Volume 99.6 fl (80-94); Mean Platelet Volume 9.8 fl (7.4-10.4); Monocytes # 0.6 K/mm3 (0.1-1.0); Monocytes % 6.1 % (1.7-9.3); Neutrophils % 50.8 % (37.0-80.0); Platelet Count 273 K/mm3 (142-424); Red Blood Count 4.93 M/mm3 (4.60-6.20); Red Cell Distribution Width 13.8 % (11.5-17.5); White Blood Count 9.9 K/mm3 (4.8-10.8)
[2023-11-19 08:01] LABS: Albumin Level 4.1 g/dl (3.5-5.0); Alkaline Phosphatase 112 U/L (38-126); Aspartate Amino Transferase 21 U/L (17-59); Bilirubin,Direct 0.1 mg/dl (0.0-0.4); Bilirubin,Indirect 0.3 mg/dL (0.0-0.9); Bilirubin,Total 0.4 mg/dl (0.2-1.3); Bilirubin,Unconjugated 0.4 mg/dL (0.0-1.1); Blood Urea Nitrogen 12 mg/dl (9-20); Calcium 9.1 mg/dl (8.4-10.2); Carbon Dioxide 29 mmol/L (22.0-30.0); Chloride 106 mmol/L (98-107); Chol/HDL Ratio 5.1 (1-3.5); Cholesterol 159 mg/dl (140-200); Estimated Glomerular Filt Rate 86 ml/min (>60); GFR (African American) 104 ML/MIN (>60); Glucose 90 mg/dl (74-100); HDL Cholesterol 31 mg/dl (40-60); Magnesium 2.3 mg/dl (1.6-2.3); Sodium 140 mmol/L (136-145); Total Protein,Serum 6.6 g/dl (6.3-8.2); Triglycerides 77 mg/dl (30-150); VLDL Cholesterol 15 mg/dL (0-40)
[2023-11-19 08:07] LABS: Free T4 (Free Thyroxine) 1.04 ng/dl (0.78-2.19)
[2023-11-19 08:12] LABS: Direct LDL Cholesterol 98.21 mg/dL (100-129)
[2023-11-19 08:32] LABS: Thyroid Stimulating Hormone 2.57 uIU/mL (0.465-4.68)
[2023-11-19 08:40] LABS: Alanine Aminotransferase 20 U/L (12-78)
== END 2023-11-19 23:59 ==
PROVIDERS: PCP Internal Medicine Adolescent Medicine; Visit Provider Physician Assistant
DX: E78.5 Hyperlipidemia, unspecified (principal); I25.10 Atherosclerotic heart disease of native coronary artery without angina pectoris; R00.2 Palpitations; Z95.1 Presence of aortocoronary bypass graft; F17.210 Nicotine dependence, cigarettes, uncomplicated
CPT/HCPCS: 36415; 80048; 80061; 80076; 83735; 84439; 84443; 85025